=== PATIENT | male | born 1965 | race Caucasian/White ===

== ENCOUNTER 2017-03-04 09:17 | Inpatient (IN) | payer OTHER ==
--- NOTE | ~2017-03-04 | HP ---
Unit #: [id number] #: [id number] Patient: SHAQUILLE PRATT [id number] [place] [address] [id number] I MR#: [id number] NAME: SHAQUILLE PRATT. ROOM: P257 Age: 51 Sex: M Admission Date: 03/04/2017 : 1965 Attending Physician: Jesus Hernandez M.D. Admitting Physician: Jesus Hernandez M.D. Primary Care Physician: Primary Care Physician No HISTORY AND PHYSICAL HISTORY OF PRESENT ILLNESS Shaquille is a 51 year old admitted to [address] [place] [address] because of his continued abuse of alcohol. PAST MEDICAL HISTORY 1. Long history of alcohol abuse. 2. History of withdrawal seizures and DTs. 3. High blood pressure. 4. COPD. PAST SURGICAL HISTORY 1. Appendectomy. 2. Left foot. ALLERGIES No known drug allergies. SOCIAL HISTORY Smokes less than one pack per day. Drinks a case of beer on a daily basis. Denies illicit drug use. FAMILY HISTORY Medically noncontributory. REVIEW OF SYSTEMS CONSTITUTIONAL: No fever or chills. HEENT: Denies any sore throat, ear pain or runny nose. CARDIOVASCULAR: Denies chest pain, irregular heart rhythm or palpitations. CHEST: Denies shortness of breath or cough. No hemoptysis. GASTROINTESTINAL: Denies nausea, vomiting, diarrhea or chronic constipation. ENDOCRINE: Denies history of increased thirst or urination. No recent significant weight loss or gain. GENITOURINARY: Denies dysuria, frequency, or hematuria. SKIN: Denies any rashes. HEMATOLOGIC: Denies history of increased bleeding or bruising. MUSCULOSKELETAL: Denies any hot, swollen joints. No generalized muscle pain. NEUROLOGIC: Denies problems with vision or speech. No frequent, severe headaches. No numbness, tingling or weakness in any extremities. Denies loss of bladder or bowel control. Unit #: [id number] #: [id number] Patient: SHAQUILLE PRATT CURRENT MEDICATIONS 1. Detox protocol 2. Zestril 10 mg q day 3. Zyprexa 20 mg q day 4. Trazodone 150 mg q.h.s. 5. Zoloft 100 mg b.i.d. 6. Neurontin 800 mg t.i.d. PHYSICAL EXAMINATION GENERAL: Alert, well-nourished, in no apparent distress. VITAL SIGNS: Blood pressure 152/100, heart rate 80, respirations 16, temperature 98.6. WEIGHT: 165 pounds. HEIGHT: 5'10". SKIN: Warm and dry without rash or lesion. HEENT: Normocephalic. TMs not viewed. Oral and nasal passages clear. Conjunctivae clear. Pupils equal, round and reactive to light and accommodation. Extraocular movements intact. NECK: Supple without lymphadenopathy or thyromegaly. HEART: Regular rate and rhythm without murmur. LUNGS: Clear. ABDOMEN: Soft, nontender. : Not done. EXTREMITIES: No evidence of cyanosis, clubbing or edema. Moves all extremities without focal deficit. NEUROLOGICAL: Grossly within normal limits. Cranial Nerves: II: Visual guerrero are intact. III, IV AND : Extraocular movements are intact. Pupils are equal, round and reactive to light. V: Facial sensation is grossly normal. VII: Facial movements and expression are normal. VIII: Auditory acuity grossly intact. IX, X: Uvula is midline. Phonation is normal. XI: Patient shrugs shoulders and turns head normally. XII: Tongue protrudes in the midline. Sensory and Motor Function: Sensory and motor sensation is grossly normal. Motor: moves all extremities well. Coordination: Gait is normal. Deep Tendon Reflexes: Intact. IMPRESSION Psychiatric admission. RECOMMENDATIONS PSYCHIATRIC: Per psychiatrist. MEDICAL: I see no contraindications to participating in facility's activities. MEDICAL PROGNOSIS Good. MEDICAL CONDITION Stable. Dictated by... Junie Quiroz P.A.-C. for Unit #: [id number] #: [id number] Patient: SHAQUILLE PRATT Miriam Larios/ariel TD: 03/05/2017 05:26 JOB #: [id number] HISTORY AND PHYSICAL Page 1 of 1 X Junie Quiroz HISTORY AND PHYSICAL
--- NOTE | ~2017-03-04 | DS ---
Unit #: [id number] #: [id number] Patient: SHAQUILLE ANTONIO [id number] [facility] [address] [place] [address] [id number] I MR#: [id number] NAME: SHAQUILLE ANTONIO. ROOM: [facility] Age: 51 Sex: M Admission Date: 03/04/2017 : 1965 Discharge Date: 03/06/2017 Attending Physician: Jesus Hernandez M.D. Primary Care Physician: Primary Care Physician No DISCHARGE SUMMARY IDENTIFYING DATA Mr. Antonio is a 51-year-old male who is known to us from previous encounter was self-referred to the hospital. DISCHARGE DIAGNOSIS PSYCHIATRIC 1. Alcohol dependence moderate and acute withdrawals. 2. Alcohol induced mood disorder. MEDICAL Hypertension. STRESSORS Moderate psychosocial stressors. HISTORY OF PRESENT ILLNES/PAST PSYCHIATRIC HISTORY/PAST MEDICAL HISTORY Copy and paste from initial psychiatric evaluation. HOSPITAL COURSE The patient was admitted to the adult chemical dependence unit at [facility] and was oriented to the hospital environment. Routine p.r.n. medications were initiated, and started back on his home medications and alcohol detox protocol was initiated. However, he was seen to be having some persistent complications and was seen in medical consultation and was sent to the emergency room and was discharged from our care as he was hospitalized under the medical floor. DISCHARGE CONDITION Stable. PROGNOSIS Guarded. Dictated by... Miriam Bettencourt/ariel TD: 03/28/2017 02:46 JOB #: [id number] Unit #: [id number] #: [id number] Patient: SHAQUILLE ANTONIO DISCHARGE SUMMARY Page 1 of 1 X Jesus Hernandez MD X DISCHARGE SUMMARY
--- NOTE | ~2017-03-04 | PN ---
Unit #: [id number] #: [id number] Patient: SHAQUILLE ANTONIO [id number] [facility] [address] [place] [address] [id number] MR#: [id number] NAME: SHAQUILLE ANTONIO. ROOM: [facility] Age: 51 Sex: M Admission Date: 03/04/2017 : 1965 Attending Physician: Jesus Hernandez M.D. Admitting Physician: Jesus Hernandez M.D. Primary Care Physician: Primary Care Physician Agueda SINCLAIR PROGRESS NOTES DATE 03/05/2017 DISCUSSION Mr. Antonio is a 51-year-old white male with mood disorder and alcohol dependence who was seen today and chart was reviewed and case was discussed with the staff. He was seen to be anxious, withdrawn, depressed and rather seclusive to himself. Meanwhile, he has been cooperative with treatment recommendations and has been taking medications and tolerating them fairly well with no reported side effects. MENTAL STATUS EXAMINATION Middle-aged white male who was casually dressed with fair personal hygiene and appears to be in distress or discomfort. He was awake and alert with impaired attention and concentration. His mood was anxious with congruent affect. His speech is slow and restricted in content. He denies any suicidal or homicidal ideation and also denies any auditory or visual hallucinations. His insight and judgement remains slightly impaired. TREATMENT PLAN 1. Will continue on his current medications and treatment protocol. Will monitor his response to the medications and make further adjustments as needed. 2. Will continue to follow up. Dictated by... Miriam Bettencourt/jose alfredo TD: 03/05/2017 20:34 JOB #: [id number] Unit #: [id number] #: [id number] Patient: SHAQUILLE ANTONIO YAHIR PROGRESS NOTES Page 1 of 1 X Jesus Hernandez MD PROGRESS NOTE
--- NOTE | ~2017-03-04 | PA ---
Unit #: [id number] #: [id number] Patient: SHAQUILLE ANTONIO 197612 [facility] [address] [place] [address] [id number] I MR#: [id number] NAME: SHAQUILLE ANTONIO ROOM: [facility] Age: 51 Sex: M Admission Date: 03/04/2017 : 1965 Date of Assessment: 03/04/2017 Attending Physician: Jesus Hernandez M.D. Admitting Physician: Jesus Hernandez M.D. Primary Care Physician: Primary Care Physician No PSYCHIATRIC ASSESSMENT DATE OF SERVICE 03/04/2017. IDENTIFYING DATA Mr. Antonio is a 51-year-old, single, white male, who is a resident of [place], [place], and is known to us from previous encounter, was self-referred to the hospital on a voluntary basis. CHIEF COMPLAINT "I'm suicidal right now." HISTORY OF PRESENT ILLNESS Mr. Antonio is a 51-year-old white male with dual diagnosis of mood disorder and alcohol dependence, who brought himself to the hospital stating "I got [address] 8 housing, [facility] got me new furniture. I went to my apartment and found bedbugs. I had to throw my bed away and new couch and I'm losing everything. I called management of the apartment. They did not call me back. I'm suicidal right now. I went to [employer] and brought a knife." The patient reports that he was dropped off at [facility] by one of his friends due to suicidal ideation and he brought a utility knife yesterday with an intent to stab himself and continues to have suicidal ideation with thought and plan to kill himself and stab himself and as such, was seen to be a significant threat to himself and therefore, recommendation for inpatient level of care for safety and stabilization was made and the patient was transferred to us. SUBSTANCE ABUSE HISTORY The patient reports history of alcohol dependence and has been drinking since he was 14 years old and last drink was yesterday. PAST PSYCHIATRIC HISTORY The patient has had a history of inpatient psychiatric hospitalization at [facility] several times in addition to receiving ongoing outpatient treatment at [facility], and review of the medical records indicate that he was supposed to be on Zoloft and olanzapine, though it is not clear if he has been compliant with medications as he does not appear to be showing a therapeutic response to the medications. PAST MEDICAL HISTORY Hypertension. ALLERGIES No known medication allergies. Unit #: [id number] #: [id number] Patient: SHAQUILLE ANTONIO PERSONAL AND SOCIAL HISTORY A 51-year-old white male, who reports that he is single and lives alone and has poor social support system. MENTAL STATUS EXAMINATION Middle-aged white male, who was casually dressed with fair personal hygiene, appears to be in no acute distress or discomfort. He was awake and alert on interaction with intact orientation to time, place, and person. His mood was anxious and depressed with a congruent affect. His speech was slow and restricted in content. His thought processes were disorganized with some looseness of associations and suicidal ideations. His insight and judgment remain significantly impaired. DIAGNOSTIC IMPRESSION Psychiatric: Major depressive disorder, recurrent, moderate, without psychotic features; alcohol dependence, moderate and acute withdrawals. Medical: Hypertension. Stressors: Moderate psychosocial stressors. TREATMENT PLAN 1. The patient has presented with a history of mood disorder and substance abuse and has been decompensating and will need inpatient hospitalization for safety and stabilization. We will start him back on his home medications. We will adjust his medications and monitor response. 2. Supportive therapy was provided to the patient. 3. Safe, structured, and nourishing environment will be reported. ESTIMATED LENGTH OF STAY 5 to 7 days. ABILITY TO HELP SELF Limited. WILLINGNESS TO HELP SELF The patient appears to be willing to help self. STRENGTHS 1. Communicative. 2. Cooperative. PROBLEMS 1. Chronic dysphoric symptoms. 2. Poor social support system. DISCHARGE CRITERIA This will be contingent upon the patient's ability to show resolution of his depression and anxiety and his ability to stay safe to himself, particularly after discharge from the hospital. Dictated by... Miriam Bettencourt/johnathanl Unit #: [id number] #: [id number] Patient: SHAQUILLE ANTONIO TD: 03/06/2017 03:08 JOB #: [id number] PSYCHIATRIC ASSESSMENT Page 1 of 1 X Jesus Hernandez MD PSYCHIATRIC ASSESSMENT
--- NOTE | ~2017-03-04 | PN ---
Unit #: [id number] #: [id number] Patient: SHAQUILLE ANTONIO [id number] [facility] [address] [place] [address] [id number] I MR#: [id number] NAME: SHAQUILLE ANTONIO ROOM: [facility] Age: 51 Sex: M Admission Date: 03/04/2017 : 1965 Attending Physician: Jesus Hernandez M.D. Admitting Physician: Jesus Hernandez M.D. Primary Care Physician: Primary Care Physician Agueda SINCLAIR PROGRESS NOTES DATE 03/06/2017 DISCUSSION Mr. Antonio is a 51-year-old white male who was seen today and chart was reviewed and case was discussed with the staff. He has been anxious, withdrawn, rather seclusive to himself. Meanwhile, he has been cooperative with treatment recommendations and has been taking medications and tolerating them fairly well. However, has gone into acute delirium tremens as he has been confused, disoriented, actively hallucinating and trying to climb out of his bed and appears to be completely out of touch with reality and unable to carry on any meaningful conversation. He has been placed on one-to-one level of precautions and despite receiving his regular Ativan, he still has not been able to settle down and as such p.r.n. intramuscular injections had to be given to cut down on his agitation. Will continue to monitor his response to treatment interventions. Will make further adjustments as needed. Dictated by... Miriam Bettencourt/jose alfredo TD: 03/06/2017 22:18 JOB #: [id number] [facility] PROGRESS NOTES Page 1 of 1 X Jesus Hernandez MD PROGRESS NOTE
[2017-03-05 09:51] LABS: BASOPHIL# 0.1 X10e3 (0-0.3); EOSINOPHIL# 0.2 X10e3 (0-0.7); HEMATOCRIT 26.9 % (38.0-50.0); LYMPHOCYTE# 0.7 X10e3 (1.0-3.5); LYMPHOCYTE% 25.8 % (17.0-45.0); MEAN CELL VOLUME 75.5 FL (83-96); MEAN CORPUSCULAR HEMOGLOBIN 22.4 PG (28-34); MEAN CORPUSCULAR HGB CONC 29.7 g/dL (30-36); MEAN PLATELET VOLUME 8.5 FL (6.5-11.5); MONOCYTE# 0.3 X10e3 (0-1.0); MONOCYTE% 9.9 % (3.0-12.0); NEUTROPHIL# 1.6 X10e3 (1.5-7.1); NEUTROPHIL% 56.3 % (40-75); PLATELET COUNT 121 X10e3 (140-420); RED BLOOD COUNT 3.56 X10e (3.90-5.60); RED CELL DISTRIBUTION WIDTH 18.6 % (11.0-15.5); WHITE BLOOD COUNT 2.8 X10e3 (4.0-10.5)
[2017-03-05 09:53] LABS: DIFF IND YES
[2017-03-05 09:59] LABS: ALBUMIN SERUM 3.5 g/dL (3.5-5.0); BILIRUBIN,TOTAL 1.6 mg/dL (0.2-2.0); CALCIUM SERUM 8.8 mg/dL (8.4-10.2); CREATININE SERUM 0.9 mg/dL (0.6-1.4); GLOM FILT RATE Estimated 99.2 mL/min (>60); POTASSIUM 4.2 mmol/L (3.5-5.1); PROTEIN TOTAL SERUM 6.3 g/dL (6.0-8.3)
[2017-03-05 10:35] LABS: ANISOCYTOSIS SL; PLATELET ESTIMATE NORMAL (NORMAL)
[2017-03-05 10:36] LABS: HYPOCHROMIA MOD; MICROCYTOSIS SL; POLYCHROMASIA SL
[2017-03-06 14:30] LABS: BASOPHIL# 0.1 X10e3 (0-0.3); BASOPHIL% 1.1 % (0-2.5); EOSINOPHIL# 0.1 X10e3 (0-0.7); EOSINOPHIL% 1.8 % (0.0-7.0); HEMATOCRIT 24.9 % (38.0-50.0); HEMOGLOBIN 7.2 gm/dL (13.0-16.0); MEAN CELL VOLUME 76.8 FL (83-96); MEAN CORPUSCULAR HEMOGLOBIN 22.3 PG (28-34); MEAN CORPUSCULAR HGB CONC 29.1 g/dL (30-36); MEAN PLATELET VOLUME 8.5 FL (6.5-11.5); MONOCYTE# 0.5 X10e3 (0-1.0); MONOCYTE% 8.7 % (3.0-12.0); NEUTROPHIL# 3.8 X10e3 (1.5-7.1); NEUTROPHIL% 69.4 % (40-75); PLATELET COUNT 122 X10e3 (140-420); RED BLOOD COUNT 3.24 X10e (3.90-5.60); RED CELL DISTRIBUTION WIDTH 18.9 % (11.0-15.5)
[2017-03-06 14:32] LABS: DIFF IND YES; WHITE BLOOD COUNT 5.4 X10e3 (4.0-10.5)
[2017-03-06 15:25] LABS: PLATELET ESTIMATE NORMAL (NORMAL)
[2017-03-06 15:26] LABS: ANISOCYTOSIS MOD; MICROCYTOSIS SL; POIKILOCYTOSIS SL
== END 2017-03-06 21:47 | DRG 885 ==
LOC: P2L 11:23 → POF 03-05 14:51 → P2L 03-05 14:53
PROVIDERS: Physician Assistant Medical; Psychiatry & Neurology Psychiatry
DX: F33.1 Major depressive disorder, recurrent, moderate (principal); R45.851 Suicidal ideations; I10 Essential (primary) hypertension; F10.230 Alcohol dependence with withdrawal, uncomplicated; J44.9 Chronic obstructive pulmonary disease, unspecified; F17.210 Nicotine dependence, cigarettes, uncomplicated; Y90.0 Blood alcohol level of less than 20 mg/100 ml
CPT/HCPCS: 80053; 82140; 85025; 86592; J3486

== ENCOUNTER 2017-03-06 15:54 | Inpatient (IN) | payer OTHER ==
[~2017-03-06] VITALS: Ht 167.6 cm; Wt 77.0 kg
--- NOTE | ~2017-03-06 | FU ---
[facility] Nutrition Therapy DATE: 03/14/17 Patient: SHAQUILLE PRATT Physician: MORCAR Address: [address] [place] [address] Room/Bed: [address], Zip: [place] [address] Admit Date: 03/06/17 Date of : [birth year] Height: 5 6 Weight: 180 82 NUTRITION MONITORING/FOLLOW-UP: Reason: PT SEEN FOR FOLLOW-UP DX: RESP FAILURE, ?ASPIRATION PNA Anthropometrics: 5'10", WT: 180# (82 KG), BMI: 25.8 -ADMIT WEIGHT: 165# Labs: BUN: 7, CA+:8.1, ALB: 2.8 Meds: THERAPEUTIC FORMULA, NACL, THIAMINE, PHENERGAN, PROTONIX I&O's: 3001/2846 Skin: NO KNOWN SKIN ISSUES Assessment: CHART REVIEWED AND EVENTS NOTED. PT SEEN FOR FOLLOW-UP. PT AWAKE AT TIME OF VISIT REPORTING GOOD PO INTAKE AND APPETITE, NO C/O N/V/D, NOTING EATING 100% OF MEALS. RD ENCOURAGED HEALTHY CHOICES ON MENU 2' PMH, PT AGREED AND DEMONSTRATED UNDERSTANDING OF THE TOPIC. PLANS IN PLACE FOR [facility] TO REMAIN AVAILABLE. Dx: INADEQUATE ORAL INTAKE R/T CURRENT DIAGNOSIS AEB NPO STATUS.-RESOLVED NEW Dx: ADEQUATE PO INTAKE R/T GOOD APPETITE AEB PT REPORT OF CONSUMING 100% OF MEALS. Intervention: 1. REGULAR DIET Monitoring, Evaluation and Goals: 1. WEIGHTS; PROMOTE WEIGHT MAINTENANCE-MET/IN PROGRESS 2. LABS; WNL-IN PROGRESS 3. GI; PROMOTE REGULAR GI FUNCTION-IN PROGRESS 4. ORAL INTAKE; ADVANCE DIET AND CONSUME/TOLERATE >50% OF MEALS-MET MONITOR ABOVE GOALS Recommendations: 1. RECOMMEND TO CHANGE CURRENT DIET ORDER TO HEART HEALTHY 2' PMH NO NUTRITION RISK Respectfully, [facility] Nutrition Therapy DATE: 03/14/17 Patient: SHAQUILLE PRATT Physician: LINNETTECAR Address: [address] [place] [address] Room/Bed: [address], Zip: [place] [address] Admit Date: 03/06/17 Date of : [birth year] Height: 5 6 Weight: 180 82 COLT WALL MS, RD, LD [facility] cc: client file
--- NOTE | ~2017-03-06 | EKG ---
PATIENT: SHAQUILLE PRATT UNIT #: [id number] Ventricular Rate: 85 BPM Atrial Rate: 85 BPM P-R Interval: 142 ms QRS Duration: 80 ms Q-T Interval: 418 ms QTC Calculation(Bezet): 497 ms P Norton: 34 degrees Calculated R Norton: 48 degrees Calculated T Norton: 52 degrees Diagnosis Line: Normal sinus rhythm Diagnosis Line: Prolonged QT Diagnosis Line: Abnormal ECG Diagnosis Line: No previous ECGs available Diagnosis Line: Confirmed by CHASE LOPEZ MD ([id number]) on 03/13/2017 Diagnosis Line: 7:52:37 PM INTERPRETING MD: JOHN CANSECO
--- NOTE | ~2017-03-06 | CR7 ---
[facility] A Service of [facility] & [facility] RADIOLOGY TEXT RESULTS PATIENT: SHAQUILLE PRATT LOCATION: [address] : [birth year] UNIT #: [id number] AGE: [address]: Willian Lafleur MD SEX: M ORDER DR: [id number] [facility] [address] [facility]. [place], [place] [address] [id number] I MR#: [id number] Acc #: [id number] NAME: SHAQUILLE PRATT : 1965 SEX: M STUDY DATE/TIME: 03/09/2017 10:26 UNIT: [facility] ROOM: [facility] STUDY DESCRIPTION: CR Abdomen Single AP View Attending Physician: Gurpreet Bethea M.D. Ordering Physician: Marco Vasquez M.D. MEDICAL IMAGING REPORT This report is preliminary unless electronic signature is present EXAM AP of the abdomen INDICATIONS Dobbhoff tube placement. COMPARISON STUDIES Comparison with chest x-ray from earlier today and chest CT from yesterday. FINDINGS When compared with chest CT, the course of the Dobbhoff tube is within the esophagus and the tip likely resides in the patient's large hiatal hernia and the tip is just below the right hemidiaphragm. IMPRESSION The tip of the Dobbhoff tube appears to be within the patient's large hiatal hernia when correlating with chest CT from yesterday. The tip projects just below the right hemidiaphragm. Dictated by... Enrrique Whitfield M.D. THIS IS AN ELECTRONICALLY VERIFIED REPORT Enrrique Whitfield M.D. at 03/10/2017 4:59 PM ARS/pcl TD: 03/09/2017 15:09 JOB #: [id number] MEDICAL IMAGING REPORT Page 1 of 1 COPY
--- NOTE | ~2017-03-06 | CO ---
Unit #: [id number] #: [id number] Patient: SHAQUILLE PRATT [id number] [address] [address] [id number] I MR#: [id number] NAME: SHAQUILLE PRATT. ROOM: [facility] Age: 51 Sex: M Admission Date: 03/06/2017 : 1965 Attending Physician: Gurpreet Bethea M.D. Primary Care Physician: Agueda Primary Care Physician Consultation Date: 03/07/2017 CONSULTATION REPORT REASON FOR CONSULT ICU management. CHIEF COMPLAINT Delirium tremens. HISTORY OF PRESENT ILLNESS This is a 51-year-old male with past medical history significant for hypertension, COPD and alcoholism who [facility] the [facility] Apparently the patient had checked himself in for rehabilitation, but his worsening symptoms mandated transfer to our ER for further management. The patient was started on Ativan IV in the emergency room; however, his mental status declined, and he became less responsive. Initial blood gas showed hypercarbic respiratory failure, and he was placed on BiPAP; however, followup ABG showed significant worsening in his carbon dioxide retention, so the patient was intubated overnight. The patient is currently on Precedex and fentanyl drip. He is following commands, and he is more alert. PAST MEDICAL HISTORY 1. Hypertension. 2. COPD. 3. Alcoholism. PAST SURGICAL HISTORY 1. Appendectomy. 2. Left foot surgery. SOCIAL HISTORY The patient smokes less than a pack per day. He drinks at least a case of beer daily. No history of illicit drug abuse. ALLERGIES No known drug allergies. HOME MEDICATIONS 1. Zestril. 2. Zyprexa. 3. Trazodone. 4. Zoloft. 5. Neurontin. Unit #: [id number] #: [id number] Patient: SHAQUILLE PRATT REVIEW OF SYSTEMS Unable to obtain as the patient is on the ventilator. PHYSICAL EXAMINATION GENERAL: The patient is on the ventilator. He is following commands. VITAL SIGNS: Temperature 101, blood pressure 151/62, respiratory rate 16, O2 saturation 98% on the ventilator. HEENT: Atraumatic, normocephalic. PERRLA, EOMI. NECK: Supple. No JVD. No lymphadenopathy. CHEST: Bilateral fine rhonchi. HEART: S1, S2. No murmurs, gallops or rubs. ABDOMEN: Soft, nontender. Bowel sounds positive. No hepatosplenomegaly. EXTREMITIES: No edema or cyanosis. SKIN: No rashes. ADVERTISING SPECIALIST: The patient is intubated and sedated; however, he is following simple commands, but he is shaking with tremors. LABS AND OTHER TESTS LABS: Creatinine 1.1, sodium 140, procalcitonin 3.4. White blood count 11. IMAGING TESTS: Chest x-ray is consistent with bilateral pleural effusion and probably infiltrate. ASSESSMENT 1. Acute hypoxic hypercarbic respiratory failure. 2. Aspiration pneumonia. 3. Delirium tremens. 4. Alcoholism. 5. Leukocytosis. 6. Anemia. 7. Thrombocytopenia. 8. Acute kidney injury. 9. Transaminitis. 10. Hypertension. 11. COPD. PLAN 1. Will continue the patient on the vent with setting adjustments; however, will proceed with spontaneous breathing trial, hoping to extubate the patient. 2. Will continue the patient on Precedex drip and wean as tolerated. 3. Will add clonidine and Neurontin. 4. CIWA protocol. 5. IV hydration. 6. Will obtain lactic acid to rule out sepsis. 7. Zosyn IV pending culture. 8. Bronchodilator and mucolytics. 9. DVT/GI prophylaxis. NOTE: Critical care time spent on this patient was 35 minutes. Dictated by... Kavya Dixon M.D. Unit #: [id number] #: [id number] Patient: SHAQUILLE PRATT [place]/mandie TD: 03/07/2017 12:15 JOB #: [id number] CONSULTATION REPORT Page 1 of 1 X KAVYA MACIAS MD CONSULTATION REPORT
--- NOTE | ~2017-03-06 | CR72 ---
[facility] A Service of [facility] & [facility] RADIOLOGY TEXT RESULTS PATIENT: SHAQUILLE PRATT LOCATION: [facility] 216-01 : [birth year] UNIT #: [id number] AGE: [address]: Willian Lafleur MD SEX: M ORDER DR: [id number] [facility] [address] [facility] [facility] [place], [place] [address] [id number] I MR#: [id number] Acc #: [id number] NAME: SHAQUILLE PRATT. : 1965 SEX: M STUDY DATE/TIME: 03/09/2017 5:43 UNIT: [facility] ROOM: [facility] STUDY DESCRIPTION: CR Chest Single View Portable Attending Physician: Gurpreet Bethea M.D. Ordering Physician: Siena Gold M.D. MEDICAL IMAGING REPORT This report is preliminary unless electronic signature is present EXAM AP view of chest COMPARISON 03/09/2017, 03/07/2017, 06/03/2005. HISTORY 51-year-old male with dyspnea for 4 days. Diagnosis of pneumonia. FINDINGS IMPRESSION Feeding tube tip terminates in the upper esophagus. No evidence of pneumothorax. Grossly stable right apical pleural parenchymal thickening. There is apparent cardiomegaly and mediastinal widening, perhaps in part due to portable technique and supine positioning. There is increasing cephalization of pulmonary vasculature and increased interstitial and alveolar opacities throughout the lungs, most consistent with worsening pulmonary edema. Pneumonia not entirely excluded. There may be trace unchanged right pleural effusion. Dictated by... Hugh Bedolla M.D. THIS IS AN ELECTRONICALLY VERIFIED REPORT Hugh Bedolla M.D. at 03/16/2017 4:02 PM BLM/pcl TD: 03/09/2017 11:05 JOB #: [id number] MEDICAL IMAGING REPORT Page 1 of 1 COPY
--- NOTE | ~2017-03-06 | CT57 ---
[facility] A Service of [facility] & [facility] RADIOLOGY TEXT RESULTS PATIENT: SHAQUILLE PRATT LOCATION: [address] : [birth year] UNIT #: [id number] AGE: [address]: Willian Lafleur MD SEX: M ORDER DR: [id number] [facility] [address] [facility]. [place], [place] [address] [id number] I MR#: [id number] Acc #: [id number] NAME: SHAQUILLE PRATT. : 1965 SEX: M STUDY DATE/TIME: 03/08/2017 18:15 UNIT: [facility] ROOM: [facility] STUDY DESCRIPTION: CT Chest Wo Cont Attending Physician: Gurpreet Bethea M.D. Ordering Physician: Siena Gold M.D. Primary Care Physician: No Primary Care Physician MEDICAL IMAGING REPORT This report is preliminary unless electronic signature is present EXAM CT chest without IV contrast. COMPARISON May 12, 2013. INDICATIONS 51-year-old male with dyspnea for 2 days. Suspected pneumonia clinically. FINDINGS This CT exam was performed with one or more of the following radiation dose reduction techniques: automatic exposure control, adjustment of mA and/or kV according to patient size, and iterative reconstruction. Axial CT imaging of the chest was performed without IV contrast. Coronal and sagittal reformats were constructed. Lack of IV contrast limits evaluation of adenopathy and vasculature. There is S-shaped scoliosis of the thoracic spine. There is approximately 37% anterior height loss at the T11 vertebral body which is new from comparison of 2012. There is suggestion of a lucent line paralleling the endplate with superior endplate sclerosis. This could represent subacute or acute compression fracture. Multilevel Schmorl node formation of the thoracic spine. 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 There is a large hiatal hernia. There is also right-sided fat-containing Bochdalek hernia. There is dependent attenuation seen primarily in the superior segment of the right lower lobe with band-like attenuation seen throughout the left lower lobe some of which appears consolidated with some internal air bronchograms. There are new bronchoalveolar distribution opacities in the left lower lobe as well. There is a small left pleural effusion. No pneumothorax. 1 cm nodular density in the lingula is new from 2013, possibly infectious or inflammatory. Normal caliber of the thoracic aorta [facility] A Service of [facility] RADIOLOGY TEXT RESULTS PATIENT: SHAQUILLE PRATT LOCATION: [facility]2-07 : 67 UNIT #: [id number] AGE: [address]: Willian Lafleur MD SEX: M ORDER DR: and the pulmonary artery. There are coronary artery calcifications. There is mild cardiomegaly. No evidence of adenopathy. No significant findings in the imaged upper abdomen. IMPRESSION 1. Small left pleural effusion with consolidation and bronchoalveolar opacities seen in the left lower lobe suspicious for pneumonia. There is also a new 1 cm nodule in the lingula which may be infectious or inflammatory. This is compared to 2013. 2. There is also a large fat-containing Bochdalek hernia in the right lower chest with a large hiatal hernia as well, which may be accounting for the density previously seen on radiograph in the right lower chest. There are minimal right lower lobe opacities favoring atelectasis but pneumonia cannot be excluded in the superior segment of the right lower lobe. CT chest follow up without IV contrast in 3 months is recommended to document resolution especially given the 1 cm nodular density. 3. 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 There are acute to subacute appearing fractures of the right eighth and ninth ribs which are minimally-displaced. Also there is a new compression deformity of the T11 vertebral body with approximately 37% anterior height loss. There is an apparent transverse fracture line at the superior endplate with associated sclerosis suggestive of at least a subacute, possibly an acute compression fracture. There is no retropulsion into the spinal canal. 4. Multivessel coronary artery calcifications which are very faint. Dictated by... Hugh Bedolla M.D. THIS IS AN ELECTRONICALLY VERIFIED REPORT Hugh Bedolla M.D. at 03/13/2017 8:18 THAIS Sadler TD: 03/09/2017 00:07 JOB #: [id number] MEDICAL IMAGING REPORT Page 1 of 1 COPY
--- NOTE | ~2017-03-06 | US6 ---
[facility] A Service of [facility] RADIOLOGY TEXT RESULTS PATIENT: SHAQUILLE PRATT LOCATION: [address] : [birth year] UNIT #: [id number] AGE: [address]: Willian Lafleur MD SEX: M ORDER DR: [id number] [address] [place], [place] [address] [id number] I MR#: [id number] Acc #: [id number] NAME: SHAQUILLE PRATT. : 1965 SEX: M STUDY DATE/TIME: 03/10/2017 12:46 UNIT: [facility] ROOM: [facility] STUDY DESCRIPTION: US Abdominal Limited Attending Physician: Willian Lafleur M.D. Ordering Physician: Siena Gold M.D. Primary Care Physician: Primary Care Physician No MEDICAL IMAGING REPORT This report is preliminary unless electronic signature is present EXAM Right upper quadrant ultrasound HISTORY Elevated liver enzymes. FINDINGS Ultrasound examination of the right upper quadrant demonstrates echogenic hepatic parenchyma suggesting fatty infiltration of the liver. No hepatic mass or biliary dilatation. The common bile duct measures 3 mm in diameter. Gallbladder is unremarkable. No gallstones or gallbladder wall thickening or gallbladder distension. Survey of the right kidney demonstrates no hydronephrosis or renal mass. No focal right renal parenchymal atrophy. The pancreas was not seen due to overlying bowel gas. IMPRESSION 1. Echogenic hepatic parenchyma suggesting fatty infiltration of the liver. No hepatic mass or biliary dilatation is identified. 2. The gallbladder is normal. 3. Survey of the right kidney is normal. 4. Pancreas was not visualized due to overlying bowel gas. Dictated by... Aramis Sebastian M.D. THIS IS AN ELECTRONICALLY VERIFIED REPORT Aramis Sebastian M.D. at 03/11/2017 2:15 PM DFL/marcin TD: 03/11/2017 09:36 [facility] A Service [facility] RADIOLOGY TEXT RESULTS PATIENT: SHAQUILLE PRATT [facility]ATION: [facility] 67 UNIT #: [id number] AGE: [address]: Willian Lafleur MD SEX: M ORDER DR: JOB #: [id number] MEDICAL IMAGING REPORT Page 1 of 1 COPY
--- NOTE | ~2017-03-06 | HP ---
Unit #: [id number] #: [id number] Patient: SHAQUILLE PRATT [id number] [address] [address] [id number] I MR#: [id number] NAME: SHAQUILLE PRATT. ROOM: 77925 Age: 51 Sex: M Admission Date: 03/06/2017 : 1965 Attending Physician: Marco Vasquez M.D. Primary Care Physician: No Primary Care Physician HISTORY AND PHYSICAL CHIEF COMPLAINT Delirium tremens. HISTORY OF PRESENT ILLNESS Patient is a 51-year-old male brought to [facility] from [facility] secondary to alcohol withdrawal. Apparently he had checked himself in for rehabilitation but worsening symptoms despite management resulted in his transport to [facility] emergency department. At the time of my interview the patient is completely incoherent and in florid DTs. As a result he is unable to provide me with any history. PAST MEDICAL HISTORY High blood pressure, COPD. PAST SURGICAL HISTORY Appendectomy, left foot. SOCIAL HISTORY The patient smokes less than a pack a day, drinks at least a case of beer daily, denies illicit drug use. FAMILY HISTORY Unable to obtain. ALLERGIES No known drug allergies. HOME MEDICATIONS 1. Zestril 10 mg daily. 2. Zyprexa 20 mg daily. 3. Trazodone 150 mg p.o. q.h.s. 4. Zoloft 100 mg p.o. b.i.d. 5. Neurontin 800 mg p.o. t.i.d. REVIEW OF SYSTEMS Unable to obtain. PHYSICAL EXAMINATION VITAL SIGNS: Temperature 98.6. Pulse 103. Blood pressure 160/113. GENERAL: A 51-year-old male in moderate distress, who appears stated age. HEENT: Pupils are equally round. Extraocular movements intact. Mucous membranes dry. Unit #: [id number] #: [id number] Patient: SHAQUILLE PRTAT NECK: No JVD. No lymphadenopathy. CARDIAC: Regular rate and rhythm. No murmurs, gallops or rubs. LUNGS: Clear to auscultation bilaterally. ABDOMEN: Soft, nondistended. EXTREMITIES: No cyanosis, clubbing or edema. They are warm and dry. PSYCHIATRIC: The patient is alert and oriented x0. NEUROLOGICAL: The patient moves all extremities equally but moves them without purpose. SKIN: No rashes, bruises or ulcers. MUSCULOSKELETAL: No muscle or joint pain. No muscle or joint swelling. DIAGNOSTIC STUDIES LABORATORY: Chemistries are normal with the exception of some mild elevation in his AST and ALT at 79 and 66; hemoglobin 7.2, platelets 122. ASSESSMENT AND PLAN 1. Delirium tremens: Patient has been started on IV Ativan and will be admitted to the ICU. Harpsichord Maker consult has been obtained. Depending on his response to the IV Ativan, the patient may require more aggressive sedation. 2. DVT prophylaxis: The patient has been started on Lovenox. Dictated by Miriam Blake/gordy TD: 03/06/2017 20:34 JOB #: [id number] HISTORY AND PHYSICAL Page 1 of 1 X Marco Vasquez MD X HISTORY AND PHYSICAL
--- NOTE | ~2017-03-06 | CR72 ---
[facility] A Service of [facility] & [facility] RADIOLOGY TEXT RESULTS PATIENT: SHAQUILLE PRATT LOCATION: [address] : [birth year] UNIT #: [id number] AGE: [address]: Gurpreet Bethea MD SEX: M ORDER DR: [id number] [facility] [address] [place], [place] [address] [id number] I MR#: [id number] Acc #: [id number] NAME: SHAQUILLE PRATT : 1965 SEX: M STUDY DATE/TIME: 03/09/2017 12:44 UNIT: [facility] ROOM: [facility] STUDY DESCRIPTION: CR Chest Single View Portable Attending Physician: Gurpreet Bethea M.D. Ordering Physician: Ed Doctor [id number] [facility] Primary Care Physician: No Primary Care Physician MEDICAL IMAGING REPORT This report is preliminary unless electronic signature is present EXAM Portable chest HISTORY NG tube placement. Shortness of air. FINDINGS NG tube tip is in the right inferior mediastinum along the course of the patient's moderately large hiatal hernia as demonstrated on recent CT. The tube tip overlies the level of the right hemidiaphragm. Moderate bilateral interstitial infiltrates primarily in the lower lungs are similar to chest x-ray earlier today. Minimal right pleural effusion. Stable cardiac and mediastinal contours. Dictated by... Aramis Sebastian M.D. THIS IS AN ELECTRONICALLY VERIFIED REPORT Aramis Sebastian M.D. at 03/09/2017 6:11 PM OSCAR/mitzi TD: 03/09/2017 17:25 JOB #: [id number] MEDICAL IMAGING REPORT Page 1 of 1 COPY
--- NOTE | ~2017-03-06 | CR160 ---
[facility] A Service of [facility] & [facility] RADIOLOGY TEXT RESULTS PATIENT: SHAQUILLE PRATT LOCATION: [address] : [birth year] UNIT #: [id number] AGE: [address]: Willian Lafleur MD SEX: M ORDER DR: [id number] [facility] [address] [facility]. [place], [place] [address] [id number] I MR#: [id number] Acc #: [id number] NAME: SHAQUILLE PRATT. : 1965 SEX: M STUDY DATE/TIME: 03/10/2017 13:40 UNIT: [facility] ROOM: [facility] STUDY DESCRIPTION: CR Intro GI Tube Place SI Attending Physician: Willian Lafleur M.D. Ordering Physician: Chen Dixon M.D. Primary Care Physician: No Primary Care Physician MEDICAL IMAGING REPORT This report is preliminary unless electronic signature is present EXAM Fluoroscopic feeding tube placement, 03/10. INDICATIONS Patient in alcohol detoxification. Needs feeding tube placed. Patient has a known hiatal hernia. FINDINGS Single image was obtained. Fluoro time was 1.5 minutes. Patient has a known large hiatal hernia, as seen by chest CT dated 03/08/2017. At least half of the stomach, if not more, is intrathoracic. Multiple attempts at placing the tip of the feeding tube below the diaphragm were unsuccessful. These resulted in the tube coiling in the pharynx. The tube could not be placed past the pylorus. The tube was left within the intrathoracic portion of the stomach. IMPRESSION Patient has a known large hiatal hernia. The tube could not be placed below the diaphragm significantly nor could it be placed past the pylorus. Attempts at advancing the tube any further resulted in the tip coiling in the patient's pharynx. The tube tip is currently near the level of the diaphragm within the body of the stomach. For post pyloric placement, endoscopy may be needed. Dictated by... Steve Horowitz Jr., M.D. THIS IS AN ELECTRONICALLY VERIFIED REPORT Steve Horowitz Jr., M.D. at 03/11/2017 1:53 PM TIMOTHY/luda TD: 03/11/2017 07:29 JOB #: [id number] [facility] A Service of [facility] & [facility] RADIOLOGY TEXT RESULTS PATIENT: SHAQUILLE PRATT LOCATION: [address] [place] [address]- : [birth year] UNIT #: [id number] AGE: [address]: Willian Lafleur MD SEX: M ORDER DR: MEDICAL IMAGING REPORT Page 1 of 1 COPY
--- NOTE | ~2017-03-06 | CR7 ---
[facility] A Service of [facility] & [facility] RADIOLOGY TEXT RESULTS PATIENT: SHAQUILLE PRATT LOCATION: [address] : [birth year] UNIT #: [id number] AGE: [address]: Gurpreet Bethea MD SEX: M ORDER DR: [id number] [facility] [address] [place], [place] [address] [id number] I MR#: [id number] Acc #: [id number] NAME: SHAQUILLE PRATT : 1965 SEX: M STUDY DATE/TIME: 03/09/2017 12:36 UNIT: [facility] ROOM: [facility] STUDY DESCRIPTION: CR Abdomen Single AP View Attending Physician: Gurpreet Bethea M.D. Ordering Physician: Ed Doctor [id number] [facility] Primary Care Physician: No Primary Care Physician MEDICAL IMAGING REPORT This report is preliminary unless electronic signature is present EXAM Portable abdomen HISTORY Dobbhoff tube placement today. FINDINGS Portable radiograph of the abdomen demonstrates NG tube extends along the course of the moderately large hiatal hernia in the lower mediastinum with its tip in the upper abdominal midline at the level of the distal aspect of the hiatal hernia. There is borderline gaseous distension of the transverse colon and several small bowel loops in the left abdomen suggesting mild generalized ileus. Right lateral lower rib fractures are again demonstrated corresponding to findings on recent CT. Multilevel degenerative changes in the lumbar spine. Dictated by... Aramis Sebastian M.D. THIS IS AN ELECTRONICALLY VERIFIED REPORT Aramis Sebastian M.D. at 03/09/2017 6:11 PM OSCAR/mitzi TD: 03/09/2017 17:21 JOB #: [id number] MEDICAL IMAGING REPORT Page 1 of 1 COPY
--- NOTE | ~2017-03-06 | CT113 ---
[facility] A Service [facility] RADIOLOGY TEXT RESULTS PATIENT: SHAQUILLE PRATT LOCATION: [address] : [birth year] UNIT #: [id number] AGE: [address]: Gurpreet Bethea MD SEX: M ORDER DR: [id number] [id number] [place], [place] [address] [id number] I MR#: [id number] Acc #: [id number] NAME: SHAQUILLE PRATT : 1965 SEX: M STUDY DATE/TIME: 03/09/2017 15:46 UNIT: [facility] ROOM: [facility] STUDY DESCRIPTION: CT Sinuses Wo Contrast Attending Physician: Gurpreet Bethea M.D. Ordering Physician: Siena Gold M.D. Primary Care Physician: Primary Care Physician No MEDICAL IMAGING REPORT This report is preliminary unless electronic signature is present EXAM CT sinuses INDICATIONS Fever of unknown origin. TECHNIQUE CT of the paranasal sinuses without contrast. Coronal reconstructions were obtained. This CT exam was performed with one or more of the following radiation dose reduction techniques: Automatic exposure control, adjustment of mA and/or kV according to patient size, and iterative reconstruction. COMPARISON CT head dated 03/12/2014. FINDINGS There is mild mucosal thickening within the maxillary sinuses. The mucosal thickening measures up to 4 mm. No air-fluid levels. The left ostiomeatal unit is occluded. The right ostiomeatal unit is patent. There is mild mucosal thickening in the inferior frontal sinuses and the anterior ethmoidal air cells. No acute osseous abnormalities. Patient has generalized poor dentition, with cavities involving the right second maxillary molar. There is a sizable periapical abscess. This periapical abscess is in close proximity to the floor of the right maxillary sinus. The third maxillary molars are unerupted. IMPRESSION 1. Mild mucosal thickening in the paranasal sinuses, however no air-fluid levels. 2. Occlusion of the left ostiomeatal unit. [facility] A Service [facility] RADIOLOGY TEXT RESULTS PATIENT: SHAQUILLE PRATT LOCATION: [address] : [birth year] UNIT #: [id number] AGE: [address]: Gurpreet Bethea MD SEX: M ORDER DR: Dictated by... Ole Verma M.D. THIS IS AN ELECTRONICALLY VERIFIED REPORT Ole Verma M.D. at 03/10/2017 8:11 AM C/vinay TD: 03/10/2017 02:31 JOB #: [id number] MEDICAL IMAGING REPORT Page 1 of 1 COPY
--- NOTE | ~2017-03-06 | US84 ---
[id number] [facility] [address] [facility]. [place], [place] [address] [id number] I MR#: [id number] Acc #: [id number] NAME: SHAQUILLE PRATT : 1965 SEX: M STUDY DATE/TIME: 03/10/2017 12:26 UNIT: [facility] ROOM: [facility] STUDY DESCRIPTION: US LE Veins Complete Ye Stdy Attending Physician: Willian Lafleur M.D. Ordering Physician: Siena Gold M.D. Primary Care Physician: Primary Care Physician No MEDICAL IMAGING REPORT This report is preliminary unless electronic signature is present EXAM Bilateral lower extremity venous ultrasound HISTORY Shortness of air for 4 days. TECHNIQUE Venous ultrasound examination of both lower extremities was performed using grayscale, spectral Doppler and color flow Doppler imaging. FINDINGS The examination is negative. There is no evidence of deep venous thrombus from the groin to the lower calf bilaterally. Visualized greater saphenous veins are also patent. IMPRESSION Negative examination. No evidence of bilateral lower extremity deep venous thrombosis. Dictated by... Aramis Sebastian M.D. THIS IS AN ELECTRONICALLY VERIFIED REPORT Aramis Sebastian M.D. at 03/11/2017 2:15 PM Stephon TD: 03/11/2017 08:52 JOB #: [id number] MEDICAL IMAGING REPORT Page 1 of 1 COPY
--- NOTE | ~2017-03-06 | CR72 ---
[facility] A Service [facility] RADIOLOGY TEXT RESULTS PATIENT: SHAQUILLE PRATT LOCATION: [address] : [birth year] UNIT #: [id number] AGE: [address]: Gurpreet Bethea MD SEX: M ORDER DR: [id number] [place], [place] [address] [id number] I MR#: [id number] Acc #: [id number] NAME: SHAQUILLE PRATT. : 1965 SEX: M STUDY DATE/TIME: 03/09/2017 1:06 UNIT: [facility] ROOM: [facility] STUDY DESCRIPTION: CR Chest Single View Portable Attending Physician: Gurpreet Bethea M.D. Ordering Physician: Siena Gold M.D. Primary Care Physician: Agueda Primary Care Physician MEDICAL IMAGING REPORT This report is preliminary unless electronic signature is present EXAM Portable chest INDICATIONS Dobbhoff tube placement. PROCEDURE Frontal view chest. COMPARISON STUDIES 03/07/2017 FINDINGS Stable cardiomegaly. Persistent small right effusion. There is a feeding tube positioned at the level of the jaqueline. No pneumothorax. IMPRESSION 1. Feeding tube is at the level of the jaqueline. 2. Trace right effusion is improved since 03/07/2017 Dictated by... Bhavin Mckinney M.D. THIS IS AN ELECTRONICALLY VERIFIED REPORT Bhavin Mckinney M.D. at 03/09/2017 10:22 PM EED/mitzi TD: 03/09/2017 08:32 JOB #: [id number] MEDICAL IMAGING REPORT [facility] A Service [facility] RADIOLOGY TEXT RESULTS PATIENT: SHAQUILLE PRATT LOCATION: [facility] : [birth year] UNIT #: [id number] AGE: [address]: Gurpreet Bethea MD SEX: M ORDER DR: Page 1 of 1 COPY
--- NOTE | ~2017-03-06 | CR72 ---
[facility] A Service of [facility] & [facility] RADIOLOGY TEXT RESULTS PATIENT: SHAQUILLE PRATT LOCATION: [address] : [birth year] UNIT #: [id number] AGE: [address]: Willian Lafleur MD SEX: M ORDER DR: [id number] [facility] [address] [facility]. [place], [place] [address] [id number] I MR#: [id number] Acc #: [id number] NAME: SHAQUILLE PRATT : 1965 SEX: M STUDY DATE/TIME: 03/11/2017 20:37 UNIT: [facility] ROOM: [facility] STUDY DESCRIPTION: CR Chest Single View Portable Attending Physician: Willian Lafleur M.D. Ordering Physician: Terrell Guo M.D. Primary Care Physician: Primary Care Physician No MEDICAL IMAGING REPORT This report is preliminary unless electronic signature is present EXAM Portable chest HISTORY Line placement today. FINDINGS Right IJ central line tip in the mid SVC 4 cm above the junction of the SVC and right atrium. No pneumothorax. Small right pleural effusion. Near-complete interval clearing of mild bibasilar atelectasis compared to 03/09/2017. No new infiltrates. Dictated by... Aramis Sebastian M.D. THIS IS AN ELECTRONICALLY VERIFIED REPORT Aramis Sebastian M.D. at 03/12/2017 11:33 PM DFL/ismael TD: 03/12/2017 08:13 JOB #: [id number] MEDICAL IMAGING REPORT Page 1 of 1 COPY
--- NOTE | ~2017-03-06 | CR72 ---
[facility] A Service of [facility] & [facility] RADIOLOGY TEXT RESULTS PATIENT: SHAQUILLE PRATT LOCATION: [address] : [birth year] UNIT #: [id number] AGE: [address]: Gurpreet Bethea MD SEX: M ORDER DR: [id number] [facility] [address] [place], [place] [address] [id number] I MR#: [id number] Acc #: [id number] NAME: SHAQUILLE PRATT : 1965 SEX: M STUDY DATE/TIME: 03/07/2017 2:01 UNIT: [facility] ROOM: [facility] STUDY DESCRIPTION: CR Chest Single View Portable Attending Physician: Gurpreet Bethea M.D. Ordering Physician: Marco Vasquez M.D. Primary Care Physician: Primary Care Physician No MEDICAL IMAGING REPORT This report is preliminary unless electronic signature is present EXAM Portable chest HISTORY Evaluate endotracheal tube. Shortness of air today. FINDINGS This portable view of the chest is compared with 06/03/2015. Endotracheal tube has been placed. Its tip is 2.0 cm above the jaqueline. There is bilateral increased density in the lower lobes suggesting effusions and lower lobe atelectasis. The upper lobes are clear. Dictated by... Sherman Infante M.D. THIS IS AN ELECTRONICALLY VERIFIED REPORT Sherman Infante M.D. at 03/07/2017 1:31 PM Bettie TD: 03/07/2017 08:52 JOB #: [id number] MEDICAL IMAGING REPORT Page 1 of 1 COPY
--- NOTE | ~2017-03-06 | FU ---
[facility] Nutrition Therapy DATE: 03/11/17 Patient: SHAQUILLE PRATT Physician: MORCAR Address: [address] [place] [address] Room/Bed: [address], Zip: [place] [address] Admit Date: 03/06/17 Date of : 67 Height: 5 6 Weight: 167 76 NUTRITION MONITORING/FOLLOW-UP: Reason: PT SEEN FOR FOLLOW-UP DX: RESPIRATORY FAILURE, ?ASPIRATION PNA, SENT FROM [facility] FOR DETOX Anthropometrics: 5'10", WT: 167# (76 KG), BMI: 24.0 -ADMIT WEIGHT: 165# Labs: BUN: <5, CA+:8.1, ALB: 2.8, LIPASE: 21 Meds: THERAPEUTIC FORMULA, NACL, KCL, MAG SULFATE, THIAMINE, PHENERGAN, PROTONIX I&O's: 5887/2376 Estimated Nutrition Needs: 7060-2544 KCAL 82-98 G PRO Assessment: CHART REVIEWED AND EVENTS NOTED. PT SEEN FOR FOLLOW-UP. PT EXTUBATED ASLEEP AT TIME OF VISIT. RD UNABLE TO WAKE PT AT THIS TIME. PER RN AND CHART, PT NOTED TO BE CONFUSED AND IMPULSIVE THIS AM. OF NOTE, PT PULLED DHT OUT LAST NIGHT. NO CURRENT PLANS IN PLACE FOR DIET ADVANCEMENT OR ALTERNATIVE NUTRITION SUPPORT. NO FAMILY IN ROOM AT THIS TIME. RD TO CONTINUE TO FOLLOW. SEE RECOMMENDATIONS BELOW. Dx: INADEQUATE ORAL INTAKE R/T CURRENT DIAGNOSIS, VENT DEPENDENCE AEB NPO STATUS.-ACTIVE/RESOLVED NEW Dx: INADEQUATE ORAL INTAKE R/T CURRENT DIAGNOSIS AEB NPO STATUS. Intervention: 1. NPO Monitoring, Evaluation and Goals: 1. ENTERAL NUTRITION; ONCE INITIATED, PROVIDE >80% TOTAL VOLUME X 24 HOURS-UNMEASURED 2. WEIGHTS; PROMOTE WEIGHT MAINTENANCE-MET/IN PROGRESS 3. LABS; WNL-IN PROGRESS 4. GI; PROMOTE REGULAR GI FUNCTION-IN PROGRESS NEW GOAL: (IN ADDITION TO ABOVE) 1. ORAL INTAKE; ADVANCE DIET AND CONSUME/TOLERATE >50% OF MEALS MONITOR: -WEIGHTS -PLANS FOR SUPPORT [facility] Nutrition Therapy DATE: 03/11/17 Patient: SHAQUILLE PRATT Physician: MORCAR Address: [address] [place] [address] Room/Bed: [address], Zip: [place] [address] Admit Date: 03/06/17 Date of : 67 Height: 5 6 Weight: 167 76 -DIET ADVANCEMENT/PO INTAKE/APPETITE -LABS Recommendations: 1. ONCE MEDICALLY FEASIBLE, ADVANCE DIET PER CLAY MOLDER + DIET 2' PMH 2. IF PT REMAINS NPO, RECOMMEND TO BEGIN ALTERNATIVE NUTRITION SUPPORT OF JEVITY 1.5 @ 20 ML/HR, ADVANCE 10 ML q 6 HOURS TO GOAL RATE OF 55 ML/HR -PROVIDES 1980 KCAL, 84 G PRO, 1003 ML FREE H20 ADD FREE H20 FLUSHES OF 170 ML q 4 HOURS TO MEET PT'S CURRENT ESTIMATED FLUID NEEDS OR MANAGE PER MD RD WILL F/U PER PROTOCOL PT IS MODERATELY COMPROMISED Respectfully, COLT WALL MS, RD, LD [facility] cc: client file
--- NOTE | ~2017-03-06 | A ---
[facility] Nutrition Therapy DATE: 03/07/17 Patient: SHAQUILLE PRATT Physician: MORCAR Address: [address] [place] [address] Room/Bed: [address], Zip: [place] [address] Admit Date: 03/06/17 Date of : 67 Height: 5 6 Weight: 164 74.5 NUTRITIONAL ASSESSMENT: REASON: NPO IN ICU ASSESSMENT PT IS 51 Y.O. MALE ADMITTED FOR RESPIRATORY FAILURE, ?ASPIRATION PNA, SENT FROM [facility] FOR DETOX PMH: HTN, COPD, ETOH ABUSE Anthropometrics: 5'10", WT: 165# (75 KG), BMI: 23.7 Labs: GLU: 146, ALB: 3.8, AST: 79, ALT: 66 Meds: NACL, FENTANYL, PROTONIX, THIAMINE I/O & Bowel function: 297/675 Skin Integrity: NO KNOWN SKIN ISSUES Estimated Nutrition Needs: 1223-7086 KCAL (25-30 KCAL/KG BW) 82-98 G PRO(1.1-1.3 G PRO/KG BW) FLUIDS CONSISTET W/KCAL NEEDS OR MANAGE PER MD Assessment: CHART REVIEWED AND EVENTS NOTED. PT SEEN FOR NPO IN ICU ASSESSMENT. PT INTUBATED AND SEDATED AT TIME OF VISIT 2' DX. PT ADMITTED FOR ICU FROM [facility]. PT WAS AT [facility] PREVIOUSLY FOR ALCOHOL DETOX. NO FAMILY IN ROOM AT TIME OF VISIT. PER AND CHART, NO CURRENT PLANS IN PLACE FOR ALTERNATIVE NUTRITION SUPPORT AT THIS TIME. RD TO FOLLOW. SEE RECOMMENDATIONS BELOW. Dx: INADEQUATE ORAL INTAKE R/T CURRENT DIAGNOSIS, VENT DEPENDENCE AEB NPO STATUS. Intervention: 1. NPO Monitoring, Evaluation and Goals: 1. ENTERAL NUTRITION; ONCE INITIATED, PROVIDE >80% TOTAL VOLUME X 24 HOURS 2. WEIGHTS; PROMOTE WEIGHT MAINTENANCE 3. LABS; WNL 4. GI; PROMOTE REGULAR GI FUNCTION MONITOR: -WEIGHTS -PLANS FOR SUPPORT [facility] Nutrition Therapy DATE: 03/07/17 Patient: SHAQUILLE PRATT Physician: SUSIE Address: [address] [place] [address] Room/Bed: [address], Zip: [place] [address] Admit Date: 03/06/17 Date of : 67 Height: 5 6 Weight: 164 74.5 -EXTUBATION Recommendations: 1. ONCE MEDICALLY FEASIBLE AND PT EXTUBATED, ADVANCE DIET PER STREET SUPERINTENDENT + HH DIET 2. IF PT REMAINS INTUBATED >24 HOURS, RECOMMEND TO PLACE DHT AND BEGIN ALTERNATIVE NUTRITION SUPPORT OF JEVITY 1.5 @ 20 ML/HR, ADVANCE 10 ML q 6 HOURS TO GOAL RATE OF 55 ML/HR -PROVIDES 1980 KCAL, 84 G PRO, 1003 ML FREE H20 ADD FREE H20 FLUSHES OF 170 ML q 4 HOURS TO MEET PT'S CURRENT ESTIMATED FLUID NEEDS OR MANAGE PER MD RD WILL F/U PER PROTOCOL PT IS SEVERELY COMPROMISED Respectfully, COLT WALL MS, RD, LD [facility] cc: client file
--- NOTE | ~2017-03-06 | DS ---
Unit #: [id number] #: [id number] Patient: SHAQUILLE PRATT [id number] [address] [address] [id number] I MR#: [id number] NAME: SHAQUILLE PRATT. ROOM: 216 Age: 51 Sex: M Admission Date: 03/06/2017 : 1965 Discharge Date: 03/16/2017 Attending Physician: Willian Lafleur M.D. Primary Care Physician: No Primary Care Physician DISCHARGE SUMMARY DIAGNOSIS ON ADMISSION Delirium tremens. DIAGNOSES ON DISCHARGE 1. Alcohol abuse. 2. Delirium tremens. 3. Acute respiratory failure, resolved. 4. Aspiration pneumonia. 5. Hypertension. 6. Alcohol withdrawal, resolved. 7. Chronic obstructive pulmonary disease. 8. Hiatal hernia. CONSULTATIONS Dr. Gold and group in pulmonary consultation. DIAGNOSTIC STUDIES LABS: The patient's creatinine is 0.8, sodium 141, potassium 3.4. WBC is 7.2, hemoglobin 7.7, platelet count 288. Stool for occult blood is negative. Blood cultures are also negative. IMAGING: The patient had a CT scan of the chest done, which revealed small left pleural effusion with consolidation and bronchioloalveolar opacities. There was a large hiatal hernia present. HOSPITAL COURSE This 51-year-old patient was admitted to [facility] with alcohol withdrawal. Details are as per admission H and P. The patient was admitted in the ICU as per [place] protocol. The patient had severe DT, but he is much better now and his delirium has resolved. The patient is ambulatory. Acute respiratory failure. The patient required oxygen, but he is off the oxygen now. Aspiration pneumonia. The patient was treated with antibiotics. PHYSICAL EXAMINATION GENERAL: Today, the patient is comfortable, is not in any acute distress. VITAL SIGNS: Vital signs reveal temperature of 97.5, pulse 80 per minute, respiratory rate 18 per minute and blood pressure 125/85. HEENT: Examination revealed no conjunctival congestion. Sclera is nonicteric. NECK: Neck is supple. Trachea is central. Unit #: [id number] #: [id number] Patient: SHAQUILLE PRATT RESPIRATORY: Examination revealed breath sounds equal bilaterally. There are no wheezes or crackles. HEART: Regular rate and rhythm. S1, S2. ABDOMEN: Abdomen is soft, nontender. Bowel sounds are present in all 4 quadrants. NEUROLOGIC: The patient is alert to person, place and time. Power is 5/5 bilaterally. Sensations are grossly intact. SKIN: Skin is warm and dry. RECOMMENDATIONS ON DISCHARGE 1. Condition is stable. 2. Activity is as tolerated. DISCHARGE MEDICATIONS 1. Multivitamin 1 tablet p.o. daily. 2. Lopressor 50 mg p.o. b.i.d. 3. Augmentin 875 mg p.o. b.i.d. for 5 days. 4. The patient is advised to continue his home Zoloft and trazodone. FOLLOWUP/RECOMMENDATIONS 1. The patient is advised to have followup with primary care physician in 1 week and have a CBC and BMP done and follow up on blood pressure. 2. The patient is advised to follow up with Dr. Gold in 2-3 weeks. 3. The patient is advised to follow up with [facility] regarding alcohol abuse. 4. I have discussed with the patient in detail about complications of alcohol abuse, and he states that he will not drink again, but I am not sure about that. The patient is aware of the fact that his continued drinking can lead to liver failure, cardiomyopathy and can result in permanent disability and possible . Dictated by... Miriam Bailey/mandie TD: 03/16/2017 14:58 JOB #: [id number] CC: [facility], [facility]. DISCHARGE SUMMARY Page 1 of 1 X Willian Lafleur MD X DISCHARGE SUMMARY
[2017-03-06 17:39] LABS: BASOPHIL# 0.1 X10e3 (0-0.3); BASOPHIL% 0.9 % (0-2.5); EOSINOPHIL# 0.1 X10e3 (0-0.7); EOSINOPHIL% 2.4 % (0.0-7.0); HEMATOCRIT 25.4 % (38.0-50.0); HEMOGLOBIN 7.4 gm/dL (13.0-16.0); LYMPHOCYTE# 1.4 X10e3 (1.0-3.5); LYMPHOCYTE% 23.9 % (17.0-45.0); MEAN CELL VOLUME 76.7 FL (83-96); MEAN CORPUSCULAR HEMOGLOBIN 22.3 PG (28-34); MEAN PLATELET VOLUME 8.8 FL (6.5-11.5); MONOCYTE# 0.7 X10e3 (0-1.0); MONOCYTE% 11.2 % (3.0-12.0); NEUTROPHIL# 3.6 X10e3 (1.5-7.1); NEUTROPHIL% 61.6 % (40-75); PLATELET COUNT 134 X10e3 (140-420); RED BLOOD COUNT 3.31 X10e (3.90-5.60); RED CELL DISTRIBUTION WIDTH 18.9 % (11.0-15.5); WHITE BLOOD COUNT 5.8 X10e3 (4.0-10.5)
[2017-03-06 17:46] LABS: DIFF IND NO
[2017-03-06 17:58] LABS: ALBUMIN SERUM 3.8 g/dL (3.5-5.0); ALKALINE PHOSPHATASE 74 U/L (32-92); ALT (SGPT) 66 U/L (10-40); AST (SGOT) 79 U/L (10-42); BILIRUBIN, DIRECT 0.2 mg/dL (0.0-0.2); BILIRUBIN,INDIRECT 0.8 mg/dL (0.0-0.9); BLOOD UREA NITROGEN 11 mg/dL (9-23); CARBON DIOXIDE 27 mmol/L (22-31); CHLORIDE 101 mmol/L (100-111); CREATININE SERUM 1.1 mg/dL (0.6-1.4); GLOM FILT RATE Estimated 77.9 mL/min (>60); GLUCOSE FASTING 88 mg/dL (70-110); POTASSIUM 4.4 mmol/L (3.5-5.1); PROTEIN TOTAL SERUM 6.7 g/dL (6.0-8.3); SODIUM 135 mmol/L (135-145)
[2017-03-06 17:59] LABS: ALCOHOL BLOOD <5 mg/dL (0)
[2017-03-07 00:06] LABS: ARTERIAL BLD GAS O2 SATURATION 88.4 % (90.0-100.0); ARTERIAL BLOOD GAS CARBOXY HB 1.6 %sat (0.0-9.0); ARTERIAL BLOOD GAS HCO3 26.1 mmol/L; ARTERIAL BLOOD GAS MET HB 0.7 %sat (0.0-2.0)
[2017-03-07 00:10] LABS: ARTERIAL BLOOD GAS ALLEN TEST NORMAL; ARTERIAL BLOOD GAS ART SITE RIGHT RADIAL; ARTERIAL BLOOD GAS DELIVERY VENTURI MASK; ARTERIAL BLOOD GAS PCO2 69.4 mmHg (35.0-45.0); ARTERIAL BLOOD GAS PO2 79.9 mmHg (80.0-100); ARTERIAL BLOOD GAS pH 7.183 (7.350-7.450); ARTERIAL DRAW? YES
[2017-03-07 01:06] LABS: ARTERIAL BLOOD GAS CARBOXY HB 1.5 %sat (0.0-9.0); ARTERIAL BLOOD GAS MET HB 0.8 %sat (0.0-2.0); ARTERIAL BLOOD GAS PO2 99.4 mmHg (80.0-100)
[2017-03-07 01:10] LABS: ARTERIAL BLOOD GAS pH 7.022 (7.350-7.450)
[2017-03-07 01:11] LABS: ARTERIAL BLOOD GAS ALLEN TEST NORMAL; ARTERIAL BLOOD GAS ART SITE RIGHT RADIAL; ARTERIAL BLOOD GAS DELIVERY BIPAP 16/6; ARTERIAL DRAW? YES
[2017-03-07 03:01] LABS: ARTERIAL BLD GAS O2 SATURATION 89.7 % (90.0-100.0); ARTERIAL BLOOD GAS CARBOXY HB 1.6 %sat (0.0-9.0); ARTERIAL BLOOD GAS HCO3 23.1 mmol/L; ARTERIAL BLOOD GAS MET HB 0.7 %sat (0.0-2.0); ARTERIAL BLOOD GAS PCO2 46.7 mmHg (35.0-45.0); ARTERIAL BLOOD GAS pH 7.302 (7.350-7.450)
[2017-03-07 03:02] LABS: ARTERIAL BLOOD GAS ALLEN TEST NORMAL; ARTERIAL BLOOD GAS ART SITE RIGHT RADIAL; ARTERIAL BLOOD GAS DELIVERY VENT; ARTERIAL BLOOD GAS PO2 73.1 mmHg (80.0-100); ARTERIAL BLOOD GAS VENT MODE A/C; ARTERIAL DRAW? YES
[2017-03-07 05:25] LABS: BASOPHIL% 0.4 % (0-2.5); EOSINOPHIL# 0.1 X10e3 (0-0.7); EOSINOPHIL% 0.7 % (0.0-7.0); HEMATOCRIT 27.1 % (38.0-50.0); HEMOGLOBIN 7.7 gm/dL (13.0-16.0); MEAN CELL VOLUME 79.4 FL (83-96); MEAN CORPUSCULAR HEMOGLOBIN 22.5 PG (28-34); MEAN CORPUSCULAR HGB CONC 28.4 g/dL (30-36); MEAN PLATELET VOLUME 8.9 FL (6.5-11.5); MONOCYTE# 0.7 X10e3 (0-1.0); MONOCYTE% 6.5 % (3.0-12.0); NEUTROPHIL# 9.2 X10e3 (1.5-7.1); NEUTROPHIL% 83.4 % (40-75); PLATELET COUNT 135 X10e3 (140-420); RED BLOOD COUNT 3.41 X10e (3.90-5.60); RED CELL DISTRIBUTION WIDTH 18.4 % (11.0-15.5)
[2017-03-07 05:33] LABS: DIFF IND NO
[2017-03-07 07:13] LABS: BUN/CREATININE RATIO 8.18; CALCIUM SERUM 8.6 mg/dL (8.4-10.2); CREATININE SERUM 1.1 mg/dL (0.6-1.4); GLOM FILT RATE Estimated 77.9 mL/min (>60); POTASSIUM 4.5 mmol/L (3.5-5.1)
[2017-03-08 05:05] LABS: BASOPHIL% 0.2 % (0-2.5); EOSINOPHIL# 0.1 X10e3 (0-0.7); EOSINOPHIL% 0.7 % (0.0-7.0); HEMATOCRIT 25.4 % (38.0-50.0); HEMOGLOBIN 7.2 gm/dL (13.0-16.0); LYMPHOCYTE# 1.1 X10e3 (1.0-3.5); LYMPHOCYTE% 8.7 % (17.0-45.0); MEAN CORPUSCULAR HEMOGLOBIN 22.3 PG (28-34); MEAN CORPUSCULAR HGB CONC 28.2 g/dL (30-36); MEAN PLATELET VOLUME 8.6 FL (6.5-11.5); MONOCYTE# 0.7 X10e3 (0-1.0); MONOCYTE% 5.7 % (3.0-12.0); NEUTROPHIL# 11.1 X10e3 (1.5-7.1); NEUTROPHIL% 84.7 % (40-75); PLATELET COUNT 125 X10e3 (140-420); RED BLOOD COUNT 3.21 X10e (3.90-5.60); RED CELL DISTRIBUTION WIDTH 18.3 % (11.0-15.5); WHITE BLOOD COUNT 13.1 X10e3 (4.0-10.5)
[2017-03-08 05:06] LABS: DIFF IND NO
[2017-03-08 05:17] LABS: ALBUMIN SERUM 2.9 g/dL (3.5-5.0); BILIRUBIN,TOTAL 0.9 mg/dL (0.2-2.0); CALCIUM SERUM 7.6 mg/dL (8.4-10.2); GLOM FILT RATE Estimated 87.4 mL/min (>60); POTASSIUM 3.5 mmol/L (3.5-5.1); PROTEIN TOTAL SERUM 5.4 g/dL (6.0-8.3)
[2017-03-09 04:00] LABS: ARTERIAL BLD GAS O2 SATURATION 96.5 % (90.0-100.0); ARTERIAL BLOOD GAS CARBOXY HB 1.5 %sat (0.0-9.0); ARTERIAL BLOOD GAS HCO3 22.2 mmol/L; ARTERIAL BLOOD GAS MET HB 0.7 %sat (0.0-2.0); ARTERIAL BLOOD GAS pH 7.352 (7.350-7.450)
[2017-03-09 04:03] LABS: ARTERIAL BLOOD GAS ALLEN TEST NORMAL; ARTERIAL BLOOD GAS ART SITE RIGHT RADIAL; ARTERIAL BLOOD GAS DELIVERY NASAL CANNULA; ARTERIAL DRAW? YES
[2017-03-09 06:13] LABS: ALBUMIN SERUM 2.8 g/dL (3.5-5.0); CALCIUM SERUM 7.7 mg/dL (8.4-10.2); GLOM FILT RATE Estimated 87.4 mL/min (>60); MAGNESIUM 1.8 mg/dL (1.6-3.0); PROTEIN TOTAL SERUM 5.7 g/dL (6.0-8.3)
[2017-03-09 06:25] LABS: BASOPHIL% 0.5 % (0-2.5); EOSINOPHIL# 0.2 X10e3 (0-0.7); EOSINOPHIL% 2.1 % (0.0-7.0); HEMATOCRIT 23.6 % (38.0-50.0); LYMPHOCYTE% 12.5 % (17.0-45.0); MEAN CELL VOLUME 78.6 FL (83-96); MEAN CORPUSCULAR HEMOGLOBIN 22.7 PG (28-34); MEAN CORPUSCULAR HGB CONC 28.9 g/dL (30-36); MEAN PLATELET VOLUME 8.7 FL (6.5-11.5); MONOCYTE# 0.5 X10e3 (0-1.0); MONOCYTE% 6.4 % (3.0-12.0); NEUTROPHIL# 6.2 X10e3 (1.5-7.1); NEUTROPHIL% 78.5 % (40-75); PLATELET COUNT 148 X10e3 (140-420); RED BLOOD COUNT 3.01 X10e (3.90-5.60); RED CELL DISTRIBUTION WIDTH 18.7 % (11.0-15.5); WHITE BLOOD COUNT 7.9 X10e3 (4.0-10.5)
[2017-03-09 06:35] LABS: HEMOGLOBIN 6.8 gm/dL (13.0-16.0)
[2017-03-09 06:37] LABS: DIFF IND NO
[2017-03-09 14:23] LABS: HEMATOCRIT 26.1 % (38.0-50.0); HEMOGLOBIN 7.8 gm/dL (13.0-16.0)
[2017-03-09 14:29] LABS: AMYLASE 25 U/L (0-46); LIPASE 21 U/L (22-51)
[2017-03-10 05:24] LABS: BASOPHIL% 0.4 % (0-2.5); EOSINOPHIL# 0.3 X10e3 (0-0.7); EOSINOPHIL% 3.2 % (0.0-7.0); HEMATOCRIT 27.2 % (38.0-50.0); HEMOGLOBIN 8.1 gm/dL (13.0-16.0); LYMPHOCYTE# 0.6 X10e3 (1.0-3.5); LYMPHOCYTE% 8.1 % (17.0-45.0); MEAN CELL VOLUME 78.1 FL (83-96); MEAN CORPUSCULAR HEMOGLOBIN 23.3 PG (28-34); MEAN CORPUSCULAR HGB CONC 29.8 g/dL (30-36); MEAN PLATELET VOLUME 8.9 FL (6.5-11.5); MONOCYTE# 0.6 X10e3 (0-1.0); MONOCYTE% 7.6 % (3.0-12.0); NEUTROPHIL# 6.4 X10e3 (1.5-7.1); NEUTROPHIL% 80.7 % (40-75); PLATELET COUNT 177 X10e3 (140-420); RED BLOOD COUNT 3.48 X10e (3.90-5.60); RED CELL DISTRIBUTION WIDTH 18.6 % (11.0-15.5); WHITE BLOOD COUNT 7.9 X10e3 (4.0-10.5)
[2017-03-10 05:38] LABS: DIFF IND NO
[2017-03-10 06:31] LABS: CARBON DIOXIDE 22 mmol/L (22-31); CHLORIDE 113 mmol/L (100-111); CREATININE SERUM 0.8 mg/dL (0.6-1.4); GLOM FILT RATE Estimated 104.2 mL/min (>60); GLUCOSE FASTING 99 mg/dL (70-110); MAGNESIUM 1.8 mg/dL (1.6-3.0); SODIUM 141 mmol/L (135-145)
[2017-03-10 06:47] LABS: BLOOD UREA NITROGEN <5 mg/dL (9-23); BUN/CREATININE RATIO 6.25; POTASSIUM 2.9 mmol/L (3.5-5.1)
[2017-03-10 16:44] LABS: MAGNESIUM 2.2 mg/dL (1.6-3.0); POTASSIUM 3.4 mmol/L (3.5-5.1)
[2017-03-11 06:19] LABS: CALCIUM SERUM 8.1 mg/dL (8.4-10.2); CARBON DIOXIDE 19 mmol/L (22-31); CHLORIDE 110 mmol/L (100-111); CREATININE SERUM 0.9 mg/dL (0.6-1.4); GLOM FILT RATE Estimated 99.2 mL/min (>60); GLUCOSE FASTING 93 mg/dL (70-110); MAGNESIUM 1.8 mg/dL (1.6-3.0); PHOSPHOROUS 3.4 mg/dL (2.5-4.6); POTASSIUM 4.1 mmol/L (3.5-5.1); SODIUM 137 mmol/L (135-145)
[2017-03-11 06:21] LABS: BASOPHIL% 0.7 % (0-2.5); EOSINOPHIL# 0.3 X10e3 (0-0.7); EOSINOPHIL% 5.7 % (0.0-7.0); HEMATOCRIT 27.9 % (38.0-50.0); HEMOGLOBIN 8.3 gm/dL (13.0-16.0); LYMPHOCYTE# 0.7 X10e3 (1.0-3.5); LYMPHOCYTE% 11.5 % (17.0-45.0); MEAN CORPUSCULAR HEMOGLOBIN 23.5 PG (28-34); MEAN CORPUSCULAR HGB CONC 29.8 g/dL (30-36); MEAN PLATELET VOLUME 9.1 FL (6.5-11.5); MONOCYTE# 0.5 X10e3 (0-1.0); MONOCYTE% 9.1 % (3.0-12.0); NEUTROPHIL# 4.3 X10e3 (1.5-7.1); PLATELET COUNT 190 X10e3 (140-420); RED BLOOD COUNT 3.53 X10e (3.90-5.60); RED CELL DISTRIBUTION WIDTH 18.8 % (11.0-15.5); WHITE BLOOD COUNT 5.8 X10e3 (4.0-10.5)
[2017-03-11 06:23] LABS: BLOOD UREA NITROGEN <5 mg/dL (9-23); BUN/CREATININE RATIO 5.55
[2017-03-11 06:30] LABS: DIFF IND NO
[2017-03-12 04:15] LABS: BASOPHIL# 0.1 X10e3 (0-0.3); BASOPHIL% 0.9 % (0-2.5); DIFF IND YES; EOSINOPHIL# 0.4 X10e3 (0-0.7); EOSINOPHIL% 6.1 % (0.0-7.0); HEMATOCRIT 25.1 % (38.0-50.0); HEMOGLOBIN 7.5 gm/dL (13.0-16.0); LYMPHOCYTE# 0.8 X10e3 (1.0-3.5); LYMPHOCYTE% 11.4 % (17.0-45.0); MEAN CELL VOLUME 77.7 FL (83-96); MEAN CORPUSCULAR HEMOGLOBIN 23.3 PG (28-34); MEAN PLATELET VOLUME 8.9 FL (6.5-11.5); MONOCYTE# 0.7 X10e3 (0-1.0); MONOCYTE% 9.9 % (3.0-12.0); NEUTROPHIL# 4.8 X10e3 (1.5-7.1); NEUTROPHIL% 71.7 % (40-75); PLATELET COUNT 208 X10e3 (140-420); RED BLOOD COUNT 3.23 X10e (3.90-5.60); RED CELL DISTRIBUTION WIDTH 19.4 % (11.0-15.5); WHITE BLOOD COUNT 6.7 X10e3 (4.0-10.5)
[2017-03-12 04:38] LABS: CALCIUM SERUM 8.2 mg/dL (8.4-10.2); GLOM FILT RATE Estimated 87.4 mL/min (>60); POTASSIUM 3.4 mmol/L (3.5-5.1)
[2017-03-12 04:42] LABS: HYPERSEGMENTED POLYS PRESENT; HYPOCHROMIA MOD; MICROCYTOSIS MOD; OVALOCYTES PRESENT; PLATELET ESTIMATE DECREASED (NORMAL); POIKILOCYTOSIS SL
[2017-03-13 05:56] LABS: BASOPHIL# 0.1 X10e3 (0-0.3); BASOPHIL% 1.2 % (0-2.5); EOSINOPHIL# 0.5 X10e3 (0-0.7); EOSINOPHIL% 7.7 % (0.0-7.0); HEMATOCRIT 26.2 % (38.0-50.0); HEMOGLOBIN 7.7 gm/dL (13.0-16.0); LYMPHOCYTE# 0.8 X10e3 (1.0-3.5); MEAN CELL VOLUME 78.8 FL (83-96); MEAN CORPUSCULAR HEMOGLOBIN 23.1 PG (28-34); MEAN CORPUSCULAR HGB CONC 29.4 g/dL (30-36); MEAN PLATELET VOLUME 9.4 FL (6.5-11.5); MONOCYTE# 0.6 X10e3 (0-1.0); NEUTROPHIL# 4.5 X10e3 (1.5-7.1); NEUTROPHIL% 70.1 % (40-75); PLATELET COUNT 230 X10e3 (140-420); RED BLOOD COUNT 3.33 X10e (3.90-5.60); RED CELL DISTRIBUTION WIDTH 19.2 % (11.0-15.5); WHITE BLOOD COUNT 6.4 X10e3 (4.0-10.5)
[2017-03-13 06:13] LABS: DIFF IND NO
[2017-03-13 06:32] LABS: BUN/CREATININE RATIO 5.55; CALCIUM SERUM 8.2 mg/dL (8.4-10.2); CREATININE SERUM 0.9 mg/dL (0.6-1.4); GLOM FILT RATE Estimated 99.2 mL/min (>60); POTASSIUM 3.4 mmol/L (3.5-5.1)
[2017-03-14 05:50] LABS: BASOPHIL# 0.1 X10e3 (0-0.3); BASOPHIL% 1.6 % (0-2.5); EOSINOPHIL# 0.5 X10e3 (0-0.7); EOSINOPHIL% 6.6 % (0.0-7.0); HEMATOCRIT 25.4 % (38.0-50.0); HEMOGLOBIN 7.5 gm/dL (13.0-16.0); LYMPHOCYTE# 1.1 X10e3 (1.0-3.5); LYMPHOCYTE% 14.7 % (17.0-45.0); MEAN CELL VOLUME 77.9 FL (83-96); MEAN CORPUSCULAR HGB CONC 29.5 g/dL (30-36); MONOCYTE# 0.7 X10e3 (0-1.0); MONOCYTE% 9.7 % (3.0-12.0); NEUTROPHIL# 4.9 X10e3 (1.5-7.1); NEUTROPHIL% 67.4 % (40-75); PLATELET COUNT 255 X10e3 (140-420); RED BLOOD COUNT 3.26 X10e (3.90-5.60); RED CELL DISTRIBUTION WIDTH 19.4 % (11.0-15.5); WHITE BLOOD COUNT 7.3 X10e3 (4.0-10.5)
[2017-03-14 05:52] LABS: DIFF IND NO
[2017-03-14 06:29] LABS: BUN/CREATININE RATIO 7.77; CALCIUM SERUM 8.1 mg/dL (8.4-10.2); CREATININE SERUM 0.9 mg/dL (0.6-1.4); GLOM FILT RATE Estimated 99.2 mL/min (>60); POTASSIUM 3.7 mmol/L (3.5-5.1)
[2017-03-15 06:44] LABS: MAGNESIUM 1.8 mg/dL (1.6-3.0); POTASSIUM 3.7 mmol/L (3.5-5.1)
[2017-03-16 05:36] LABS: HEMOGLOBIN 7.7 gm/dL (13.0-16.0); MEAN CORPUSCULAR HEMOGLOBIN 23.1 PG (28-34); MEAN CORPUSCULAR HGB CONC 29.6 g/dL (30-36); MEAN PLATELET VOLUME 9.1 FL (6.5-11.5); RED BLOOD COUNT 3.33 X10e (3.90-5.60); RED CELL DISTRIBUTION WIDTH 19.1 % (11.0-15.5); WHITE BLOOD COUNT 7.2 X10e3 (4.0-10.5)
[2017-03-16 06:10] LABS: BUN/CREATININE RATIO 11.25; CALCIUM SERUM 8.4 mg/dL (8.4-10.2); CREATININE SERUM 0.8 mg/dL (0.6-1.4); GLOM FILT RATE Estimated 104.2 mL/min (>60); MAGNESIUM 1.8 mg/dL (1.6-3.0); POTASSIUM 3.4 mmol/L (3.5-5.1)
[2017-03-16] MEDS ORDERED: THIAMINE HCL100 M2 PO (11:11)
[2017-03-16] MEDS ORDERED: FOLIC ACID1 MG PO (11:11)
[2017-03-16] MEDS ORDERED: METOPROLOL SUCC50 MG PO (11:12)
[2017-03-16] MEDS ORDERED: MULTI VITAMIN1 EACH PO (11:13)
[2017-03-16] MEDS ORDERED: AMOXICILLIN875 MG PO (11:14)
== END 2017-03-16 12:33 | disposition home or self-care (01) | DRG 896 ==
LOC: CED 15:54 → CICCU2 19:17 → CEDOF 19:17 → CED 20:26 → CEDOF 20:26 → CICCU2 21:23 → CEDOF 21:23 → CICCU2 03-07 07:50 → C2A 03-14 18:19
PROVIDERS: Emergency Medicine; Family Medicine; Internal Medicine; Internal Medicine Pulmonary Disease
PROC: 5A1935Z Respiratory Ventilation, Less than 24 Consecutive Hours (ICD-10-PCS; 2017-03-07)
PROC: 0BH17EZ Insertion of Endotracheal Airway into Trachea, Via Natural or Artificial Opening (ICD-10-PCS; 2017-03-07)
PROC: B543ZZA Ultrasonography of Right Jugular Veins, Guidance (ICD-10-PCS; 2017-03-09)
PROC: 30233N1 Transfusion of Nonautologous Red Blood Cells into Peripheral Vein, Percutaneous Approach (ICD-10-PCS; 2017-03-09)
PROC: 0DH63UZ Insertion of Feeding Device into Stomach, Percutaneous Approach (ICD-10-PCS; principal; 2017-03-10)
PROC: 05HM33Z Insertion of Infusion Device into Right Internal Jugular Vein, Percutaneous Approach (ICD-10-PCS; 2017-03-11)
DX: F10.231 Alcohol dependence with withdrawal delirium (principal); J96.02 Acute respiratory failure with hypercapnia; J69.0 Pneumonitis due to inhalation of food and vomit; G92 Toxic encephalopathy; J96.01 Acute respiratory failure with hypoxia; N17.9 Acute kidney failure, unspecified; D69.6 Thrombocytopenia, unspecified; E44.1 Mild protein-calorie malnutrition; I10 Essential (primary) hypertension; J44.9 Chronic obstructive pulmonary disease, unspecified; D72.829 Elevated white blood cell count, unspecified; D64.9 Anemia, unspecified; R74.0 Nonspecific elevation of levels of transaminase and lactic acid dehydrogenase [LDH]; K44.9 Diaphragmatic hernia without obstruction or gangrene; Y90.0 Blood alcohol level of less than 20 mg/100 ml; E87.6 Hypokalemia; Z68.23 Body mass index [BMI] 23.0-23.9, adult; F17.200 Nicotine dependence, unspecified, uncomplicated
CPT/HCPCS: 36415; 36600; 70486; 71010; 71250; 74000; 74340; 76705; 80048; 80053; 80076; 82140; 82150; 82274; 82308; 82803; 82947; 83051; 83605; 83690; 83735; 84100; 84132; 85014; 85018; 85025; 85027; 86850; 86900; 86901; 86923; 87040; 87070; 87205; 92610; 93005; 93970; 94002; 94003; 94640; 94660; 94760; 94761; 96374; 97162; 99285; C9113; G0480; G8978-GP; G8979-GP; G8980-GP; G8996-GN; G8997-GN; G8998-GN; J0330; J0360; J1630; J1650; J2060; J2543; J3411; J3475; J3490; J7042; P9016

== ENCOUNTER 2017-05-02 19:00 | Inpatient (IN) | payer OTHER ==
[~2017-05-02] VITALS: Ht 172.7 cm; Wt 74.4 kg
--- NOTE | ~2017-05-02 | PN ---
Unit #: [id number] #: [id number] Patient: SHAQUILLE PRATT [id number] [facility] [address] [place] [address] [id number] I MR#: [id number] NAME: SHAQUILLE PRATT ROOM: [facility] Age: 51 Sex: M Admission Date: 05/02/2017 : 1965 Attending Physician: Jesus Jules M.D. Admitting Physician: Jesus Jules M.D. Primary Care Physician: Primary Care Physician Agueda SINCLAIR PROGRESS NOTES DATE 05/06/2017 DISCUSSION The patient is now in DTs unfortunately and is on one-to-one precautions. We have added low dose haloperidol and continue his detoxification protocol. I would expect his DTs to last another 2 to 4 days. Dictated by... Jesus Jules M.D. CB/jose alfredo TD: 05/06/2017 18:42 JOB #: [id number] YAHIR PROGRESS NOTES Page 1 of 1 X Jesus Jules MD X PROGRESS NOTE
--- NOTE | ~2017-05-02 | HP ---
Unit #: [id number] #: [id number] Patient: SHAQUILLE PRATT [id number] [place] [address] [id number] I MR#: [id number] NAME: SHAQUILLE PRATT. ROOM: [facility] Age: 51 Sex: M Admission Date: 05/02/2017 : 1965 Attending Physician: Jesus Jules M.D. Admitting Physician: Jesus Jules M.D. Primary Care Physician: Primary Care Physician No HISTORY AND PHYSICAL HISTORY OF PRESENT ILLNESS Shaquille is a 51-year-old male admitted on 05/02/2017 to [facility] for detox from alcohol. PAST MEDICAL HISTORY Hypertension. PAST SURGICAL HISTORY 1. Appendectomy. 2. Left foot fracture with plate and screw placement. ALLERGIES No known drug allergies. SOCIAL HISTORY He smokes 1 pack of cigarettes daily. Drinks a 12 pack of beer daily. Denies any illegal drug use. He is currently single and living alone. FAMILY HISTORY Noncontributory. REVIEW OF SYSTEMS CONSTITUTIONAL: No fever or chills. HEENT: Denies any sore throat, ear pain or runny nose. CARDIOVASCULAR: Denies chest pain, irregular heart rhythm or palpitations. CHEST: Denies shortness of breath or cough. No hemoptysis. GASTROINTESTINAL: Denies nausea, vomiting, diarrhea or chronic constipation. ENDOCRINE: Denies history of increased thirst or urination. No recent significant weight loss or gain. GENITOURINARY: Denies dysuria, frequency, or hematuria. SKIN: Denies any rashes. HEMATOLOGIC: Denies history of increased bleeding or bruising. MUSCULOSKELETAL: Denies any hot, swollen joints. No generalized muscle pain. NEUROLOGIC: Denies problems with vision or speech. No frequent, severe headaches. No numbness, tingling or weakness in any extremities. Denies loss of bladder or bowel control. CURRENT MEDICATIONS 1. Zoloft. 2. Lisinopril. 3. Trazodone. Unit #: [id number] #: [id number] Patient: SHAQUILLE PRATT 4. Metoprolol. PHYSICAL EXAMINATION GENERAL: Alert, oriented, in no acute distress. VITAL SIGNS: Blood pressure 143/102, heart rate 82, respirations 12, temperature 98.2. HEIGHT: 5 feet 8. WEIGHT: 164 pounds. SKIN: Warm and dry without rash or lesion. HEENT: Normocephalic. TMs not viewed. Oral and nasal passages clear. Conjunctivae clear. PERRLA. EOMs intact. NECK: Supple without lymphadenopathy or thyromegaly. HEART: Regular rate and rhythm without murmur. LUNGS: Clear. ABDOMEN: Soft, nontender, without masses or hepatosplenomegaly. : Not done. EXTREMITIES: No evidence of cyanosis, clubbing or edema. Moves all without focal deficit. NEUROLOGICAL: Grossly within normal limits. Cranial Nerves: II: Visual guerrero are intact. III, IV AND : Extraocular movements are intact. Pupils are equal, round and reactive to light. V: Facial sensation is grossly normal. VII: Facial movements and expression are normal. VIII: Auditory acuity grossly intact. IX, X: Uvula is midline. Phonation is normal. XI: Patient shrugs shoulders and turns head normally. XII: Tongue protrudes in the midline. Sensory and Motor Function: Sensory and motor sensation is grossly normal. Motor: moves all extremities well. Coordination: Gait is normal. Deep Tendon Reflexes: Intact. IMPRESSION Psychiatric admission. RECOMMENDATIONS PSYCHIATRIC: Per psychiatrist. MEDICAL: No contraindication to participate in facility's activities. MEDICAL PROGNOSIS Good. MEDICAL CONDITION Stable. Dictated by... Marleen Hutson/jose alfredo TD: 05/03/2017 15:58 JOB #: [id number] Unit #: [id number] #: [id number] Patient: SHAQUILLE PRATT HISTORY AND PHYSICAL Page 1 of 1 X ARPITA MENDOZA APRN HISTORY AND PHYSICAL
--- NOTE | ~2017-05-02 | PN ---
Unit #: [id number] #: [id number] Patient: SHAQUILLE PRATT [id number] [facility] [address] [place] [address] [id number] I MR#: [id number] NAME: SHAQUILLE PRATT ROOM: [facility] Age: 51 Sex: M Admission Date: 05/02/2017 : 1965 Attending Physician: Jesus Jules M.D. Admitting Physician: Jesus Jules M.D. Primary Care Physician: Primary Care Physician Agueda SINCLAIR PROGRESS NOTES DATE 05/08/2017 DISCUSSION The patient appears significantly improved. He is abed today but is less tremulous and exhibits no confusion or other stigmata of DTs or substance withdrawal. Should he sustain progress, discharge will likely take place tomorrow. Dictated by... Jesus Jules M.D. CB/jose alfredo TD: 05/08/2017 17:55 JOB #: [id number] [facility] PROGRESS NOTES Page 1 of 1 X Jesus Jules MD X PROGRESS NOTE
--- NOTE | ~2017-05-02 | PA ---
Unit #: [id number] #: [id number] Patient: SHAQUILLE PRATT [id number] [place] [address] [id number] I MR#: [id number] NAME: SHAQUILLE PRATT. ROOM: [facility] Age: 51 Sex: M Admission Date: 05/02/2017 : 1965 Date of Assessment: 05/03/2017 Attending Physician: Jesus Jules M.D. Admitting Physician: Jesus Jules M.D. Primary Care Physician: Primary Care Physician No PSYCHIATRIC ASSESSMENT IDENTIFYING INFORMATION The patient is a 51-year-old white male admitted to the [address] [place] [address] for alcohol detox. CHIEF COMPLAINT Drinking. INFORMANT(S) Patient, reliability is good. HISTORY OF PRESENT ILLNESS The patient is a 51-year-old single white male admitted with a recent alcohol binge. The patient reports that his parents within 3 days of each other approximately 3 weeks ago. Since that time, he has been drinking about a 12-pack of beer on a daily basis. The patient reports previous psychiatric treatment at this facility approximately 5 months ago, but reports that he was transferred out after suffering significant blood loss. The patient reports that he had been prescribed Zoloft in the past but reports that he has been off all his prescribed medications for approximately 4 months. He reports difficulty attending to activities of daily living and lack of energy. The patient is currently denying any suicidal ideation. He does have a history of one previous suicide attempt this having taken place in 2008. PAST PSYCHIATRIC HISTORY As above. PAST MEDICAL HISTORY The patient has a history of treatment for hypertension. MEDICATIONS The patient reports that he had previously been prescribed Neurontin, Zoloft, lisinopril, olanzapine, trazodone, and metoprolol. ALLERGIES None. FAMILY HISTORY The patient's mother is an alcoholic. SOCIAL HISTORY The patient is currently living alone. He is not employed. He has an associates degree in Nuclear Medicine per his report. He is a smoker. Unit #: [id number] #: [id number] Patient: SHAQUILLE PRATT MENTAL STATUS EXAMINATION Examination at this time reveals the patient to be a well-developed well-nourished white male appearing stated age. He is in a state of some dishevelment and is noted to be significantly tremulous during interview. He is awake, alert, and oriented in all spheres. His mood is dysphoric, his affect blunted. Speech is generally well coherent. There are no gross deficits in memory or cognition noted. Intelligence is judged to be in the average range based on fund of knowledge. The patient is cooperative throughout the interview. He is currently denying suicidal or homicidal ideation or psychotic features. Judgment and insight appear to be intact. ASSETS AND LIABILITIES The patient's assets: Motivation for change. Liabilities: Lack of resources. DIAGNOSTIC IMPRESSION 1. Alcohol use disorder. 2. Mood disorder unspecified. 3. Hypertension. TREATMENT PLAN The patient remains hospitalized for safety and stabilization. We will restart Zoloft and trazodone as well as metoprolol, and a routine detoxification protocol has been initiated. ESTIMATED LENGTH OF STAY 5 to 7 days. Followup will take place through the auspices of community mental health resources. Dictated by... Jesus Jules M.D. TOD/pierce TD: 05/03/2017 13:19 JOB #: [id number] PSYCHIATRIC ASSESSMENT Page 1 of 1 X Jesus Jules MD X PSYCHIATRIC ASSESSMENT
--- NOTE | ~2017-05-02 | PN ---
Unit #: [id number] #: [id number] Patient: SHAQUILLE PRATT [id number] [facility] [address] [place] [address] [id number] I MR#: [id number] NAME: SHAQUILLE PRATT ROOM: [facility] Age: 51 Sex: M Admission Date: 05/02/2017 : 1965 Attending Physician: Jesus Jules M.D. Admitting Physician: Jesus Jules M.D. Primary Care Physician: Primary Care Physician Agueda CULVER NOTES DATE 05/04/2017 DISCUSSION The patient remains extremely tremulous and continues to complain of significant GI and other physical discomfort later to his alcohol withdrawal. We continue current treatment. Dictated by... Jesus Jules M.D. CB/ariel TD: 05/04/2017 23:19 JOB #: [id number] YAHIR PROGRESS NOTES Page 1 of 1 X Jesus Jules MD X PROGRESS NOTE
--- NOTE | ~2017-05-02 | PN ---
Unit #: [id number] #: [id number] Patient: SHAQUILLE PRATT [id number] [facility] [address] [place] [address] [id number] I MR#: [id number] NAME: SHAQUILLE PRATT ROOM: [facility] Age: 51 Sex: M Admission Date: 05/02/2017 : 1965 Attending Physician: Jesus Jules M.D. Admitting Physician: Jesus Jules M.D. Primary Care Physician: Primary Care Physician Agueda SINCLAIR PROGRESS NOTES DATE 05/05/2017 DISCUSSION The patient remains significantly tremulous but has increased his participation within the therapeutic milieu. We have spoken today regarding post discharge treatment options and I have told the patient to expect discharge by midweek. Dictated by... Jesus Jules M.D. CB/ariel TD: 05/05/2017 23:23 JOB #: [id number] [facility]AH[facility] PROGRESS NOTES Page 1 of 1 X Jesus Jules MD X PROGRESS NOTE
--- NOTE | ~2017-05-02 | PN ---
Unit #: [id number] #: [id number] Patient: SHAQUILLE PRATT [id number] [facility] [address] [place] [address] [id number] I MR#: [id number] NAME: SHAQUILLE PRATT ROOM: [facility] Age: 51 Sex: M Admission Date: 05/02/2017 : 1965 Attending Physician: Jesus Jules M.D. Admitting Physician: Jesus Jules M.D. Primary Care Physician: Primary Care Physician Agueda SINCLAIR PROGRESS NOTES DATE 05/07/2017 DISCUSSION The patient appears to be emerging from delirium tremens. He is oriented today though he remains quite tremulous. I will discontinue his one-to-one precautions. We continue his aggressive pharmacotherapy for alcohol detox. Dictated by... Jesus Jules M.D. CB/pierce TD: 05/07/2017 14:26 JOB #: [id number] YAHIR PROGRESS NOTES Page 1 of 1 X Jesus Jules MD X PROGRESS NOTE
--- NOTE | ~2017-05-02 | DS ---
Unit #: [id number] #: [id number] Patient: SHAQUILLE PRATT [id number] [place] [address] [id number] I MR#: [id number] NAME: SHAQIULLE PRATT. ROOM: [facility] Age: 51 Sex: M Admission Date: 05/02/2017 : 1965 Discharge Date: 05/09/2017 Attending Physician: Jesus Jules M.D. Primary Care Physician: Primary Care Physician No DISCHARGE SUMMARY REASON FOR ADMISSION The patient is a 51-year-old white male, admitted for alcohol detox. HOSPITAL COURSE The patient was admitted to the [facility] unit and placed on routine detoxification protocol for alcohol. His stay in the hospital was characterized by a brief period of delirium tremens, which required one-to-one observation. The symptoms had cleared and the patient had improved considerably. By 05/09/2017, he was agreeable on that date with plan for followup in the intensive outpatient program add as per his request, discharge was ordered. He was continued on previously prescribed home medications including Zoloft, Zestril, Desyrel, Lopressor, Colace, and Fergon. FINAL DIAGNOSES Alcohol use disorder, iron-deficiency anemia, hypertension. DISPOSITION ON DISCHARGE The patient is discharged on the following medications; Zoloft 100 mg b.i.d. for depression, Zestril 10 mg once daily for hypertension, Desyrel 150 mg at bedtime p.r.n. insomnia, Lopressor 50 mg b.i.d. for hypertension, Colace 100 mg at bedtime for constipation, Fergon 324 mg b.i.d. for iron deficiency anemia. DISCHARGE INSTRUCTIONS No dietary or physical restrictions were placed upon the patient at the time of discharge. FOLLOWUP He will follow up through the auspices of the intensive outpatient program provided by this facility. Dictated by... Jesus Jules M.D. CB/oz TD: 05/09/2017 17:29 JOB #: [id number] Unit #: [id number] #: [id number] Patient: SHAQUILLE PRATT DISCHARGE SUMMARY Page 1 of 1 X Jesus Jules MD DISCHARGE SUMMARY
[~2017-05-02 19:00] MED LIST: AMOXICILLIN875 MG PO; FOLIC ACID1 MG PO; METOPROLOL SUCC50 MG PO; MULTI VITAMIN1 EACH PO; THIAMINE HCL100 M2 PO
[2017-05-03 11:58] LABS: URINE APPEARANCE CLEAR; URINE BILIRUBIN NEG (NEG); URINE BLOOD NEG (NEG); URINE COLOR YELLOW; URINE GLUCOSE NEG (NEG); URINE KETONE NEG (NEG); URINE LEUKOCYTE ESTERASE NEG (NEG); URINE NITRATE NEG (NEG); URINE PROTEIN NEG (NEG); URINE SPECIFIC GRAVITY 1.014 (1.003-1.035); URINE UROBILINOGEN 0.2 MG/DL (NEG)
[2017-05-03 12:11] LABS: AMPHETAMINE NEG (NEG); BARBITURATES NEG (NEG); BENZODIAZEPINES POS (NEG); COCAINE POS (NEG); MARIJUANA NEG (NEG); OPIATES NEG (NEG); TRICYCLIC ANTIDEPRESSANTS NEG (NEG); U METHADONE NEG (NEG)
[2017-05-03 12:44] LABS: CULTURE INDICATED? NO
[2017-05-04 14:23] LABS: BASOPHIL# 0.1 X10e3 (0-0.3); BASOPHIL% 1.3 % (0-2.5); EOSINOPHIL# 0.1 X10e3 (0-0.7); EOSINOPHIL% 2.3 % (0.0-7.0); HEMATOCRIT 24.5 % (38.0-50.0); HEMOGLOBIN 7.3 gm/dL (13.0-16.0); LYMPHOCYTE# 0.9 X10e3 (1.0-3.5); LYMPHOCYTE% 22.6 % (17.0-45.0); MEAN CELL VOLUME 76.4 FL (83-96); MEAN CORPUSCULAR HEMOGLOBIN 22.7 PG (28-34); MEAN CORPUSCULAR HGB CONC 29.7 g/dL (30-36); MEAN PLATELET VOLUME 8.2 FL (6.5-11.5); MONOCYTE# 0.5 X10e3 (0-1.0); MONOCYTE% 12.1 % (3.0-12.0); NEUTROPHIL# 2.5 X10e3 (1.5-7.1); NEUTROPHIL% 61.7 % (40-75); PLATELET COUNT 131 X10e3 (140-420); RED BLOOD COUNT 3.21 X10e (3.90-5.60); RED CELL DISTRIBUTION WIDTH 18.8 % (11.0-15.5)
[2017-05-04 14:26] LABS: DIFF IND YES
[2017-05-04 15:25] LABS: ALBUMIN SERUM 3.5 g/dL (3.5-5.0); BUN/CREATININE RATIO 10.9; CREATININE SERUM 1.1 mg/dL (0.6-1.4); GLOM FILT RATE Estimated 77.9 mL/min (>60); POTASSIUM 4.6 mmol/L (3.5-5.1)
[2017-05-04 15:39] LABS: ANISOCYTOSIS MOD; PLATELET ESTIMATE NORMAL (NORMAL); POIKILOCYTOSIS MOD
[2017-05-04 15:40] LABS: MICROCYTOSIS MOD
[2017-05-08 19:06] LABS: BASOPHIL# 0.1 X10e3 (0-0.3); BASOPHIL% 1.6 % (0-2.5); DIFF IND YES; EOSINOPHIL# 0.1 X10e3 (0-0.7); EOSINOPHIL% 1.7 % (0.0-7.0); HEMATOCRIT 26.2 % (38.0-50.0); HEMOGLOBIN 7.8 gm/dL (13.0-16.0); LYMPHOCYTE# 1.2 X10e3 (1.0-3.5); LYMPHOCYTE% 22.1 % (17.0-45.0); MEAN CELL VOLUME 76.8 FL (83-96); MEAN CORPUSCULAR HEMOGLOBIN 22.9 PG (28-34); MEAN CORPUSCULAR HGB CONC 29.9 g/dL (30-36); MEAN PLATELET VOLUME 8.7 FL (6.5-11.5); MONOCYTE# 0.7 X10e3 (0-1.0); MONOCYTE% 12.1 % (3.0-12.0); NEUTROPHIL# 3.5 X10e3 (1.5-7.1); NEUTROPHIL% 62.5 % (40-75); PLATELET COUNT 202 X10e3 (140-420); RED BLOOD COUNT 3.41 X10e (3.90-5.60); WHITE BLOOD COUNT 5.6 X10e3 (4.0-10.5)
[2017-05-08 19:47] LABS: PLATELET ESTIMATE NORMAL (NORMAL)
[2017-05-08 19:48] LABS: ANISOCYTOSIS MOD; HYPOCHROMIA MOD; MICROCYTOSIS MOD
== END 2017-05-09 17:00 | DRG 897 ==
LOC: P1E 22:28
PROVIDERS: Specialist
PROC: HZ2ZZZZ Detoxification Services for Substance Abuse Treatment (ICD-10-PCS; principal; 2017-05-06)
DX: F10.231 Alcohol dependence with withdrawal delirium (principal); F39 Unspecified mood [affective] disorder; I10 Essential (primary) hypertension; Z81.1 Family history of alcohol abuse and dependence; F17.210 Nicotine dependence, cigarettes, uncomplicated; D50.9 Iron deficiency anemia, unspecified
CPT/HCPCS: 80053; 80307; 81003; 82274; 85025; J1630